=== PATIENT | male | born 1940 | race Caucasian/White ===

== ENCOUNTER → 2024-05-12 | Outpatient (CLI) | payer MEDICARE, OTHER, SELFPAY ==
--- NOTE | 2024-05-12 08:47 | VDUE_ITS ---
Reason For Study Reason For Study: Pre op Right Arm Left Arm Unable to visualize cephalic vein throughout due to Cephalic Vein at mid forearm measures 0.08 x 0.09 cm. vessel size. Cephalic Vein proximal forearm measures 0.12 x 0.11 Proximal Basilic vein measures 0.23 x 0.23 cm. cm. Mid Basilic vein measures 0.24 x 0.26 cm. Cephalic Vein distal upper arm measures 0.06 x 0.08 Distal Basilic vein measures 0.20 x 0.21 cm. cm. Right brachial artery measures 0.36 x 0.36 cm with a Unable to visualize cephalic vein at wrist and mid velocity of 90.5 cm/sec. bicep to shoulder due to vessel size. RIght radial artery measures 0.15 x 0.13 cm with a Proximal Basilic vein measures 0.18 x 0.18 cm. velocity of 76.5 cm/sec. Mid Basilic vein measures 0.18 x 0.20 cm. Distal Basilic vein measures 0.25 x 0.26 cm. Left brachial artery measures 0.42 x 0.42 cm with a velocity of 113 cm/sec. Left radial artery measures 0.09 x0.09 cm with a velocity of 16.5 cm/sec. Procedure This was a bilateral upper extremity venous doppler examination. Exam performed in department. VL/Dialysis Vein Map PRE-OP BILAT Interpretation Summary Bilateral upper extremity arteries patent with normal waveforms and measurement s above. Unable to visualize right cephalic vein throughout, left cephalic vein in upper arm. Remaining veins patent with measurements above. Ordering Physician: Jeanne Aguayo Referring Physician: Diomedes Byers Performed By: Shereen Vega RVT ???
== END | disposition home or self-care (01) ==
PROVIDERS: PCP Family Medicine; Referring Provider Physician Assistant; Visit Provider Physician Assistant
DX: Z01.818 Encounter for other preprocedural examination (principal); N18.6 End stage renal disease; Z99.2 Dependence on renal dialysis
CPT/HCPCS: 93985

== ENCOUNTER → 2024-08-13 | Outpatient (CLI) | payer MEDICARE, OTHER, SELFPAY ==
[2024-08-13 09:05] LABS: Hematocrit 33.8 % (40-54); Hemoglobin 11.1 g/dL (13.0-16.5); Mean Corp Hgb Conc 32.8 g/dL (32-36); Mean Corpuscular Hgb 30.9 pg (27.0-32.0); Mean Corpuscular Volume 94.2 fL (80-94); Mean Platelet Vol. 10.4 fl (6.2-12.0); Platelet Count 167 K/mm3 (150-450); RBC Distribution Width CV 14.5 % (11.6-14.6); RBC Distribution Width SD 49.9 fl (35.1-43.9); Red Blood Count 3.59 M/mm3 (4.6-6.2)
[2024-08-13 10:00] LABS: Anion Gap 15 (5-15); BUN 33 mg/dL (4-19); BUN/Creat Ratio 8.2 RATIO (10-20); Calcium,Total 9.3 mg/dL (7.6-11.0); Carbon Dioxide 26.9 mmol/L (21.0-32.0); Chloride 98 mmol/L (98-108); Creatinine, Serum 3.98 mg/dL (0.70-1.20); EST Glomerular Filtration Rate 14 (>60); Glucose 107 mg/dL (70-99); Sodium Level 139 mmol/L (133-145)
== END | disposition home or self-care (01) ==
LOC: LAB 08:42
PROVIDERS: PCP Family Medicine; Referring Provider Surgery Trauma Surgery; Visit Provider Surgery Trauma Surgery
DX: Z01.818 Encounter for other preprocedural examination (principal)
CPT/HCPCS: 36415; 80048; 85027

== ENCOUNTER 2024-08-25 09:57 | Day surgery (SDC) | payer MEDICARE, OTHER, SELFPAY ==
--- NOTE | 2024-08-11 14:25 | PAT.ANE_ITS ---
Pre-Assessment Diagnosis/Proposed Procedure Planned Operative Procedure(s): (R) Right Arm Arteriovenous Fistula Creation Possible Graft Anesthesia History Anesthesia History - bar tacker: Anesthesia History - bar tacker Hx Hospitalization No 08/11/24 11:40 Any Problems With Anesthesia No 08/11/24 11:40 Cholinesterase deficiency No 08/11/24 11:40 You/Your Family Experience No 08/11/24 11:40 fever (hyperthermia) with Relationship Recent Exposure to Contagious Disease Does patient have nerve No 08/11/24 11:40 stimulator Patient instructed to have device shut off --Does patient have Pacemaker or ICD? When Was Last Pacemaker Check QUESTION #4 FULL TEXT: You/Your Family Experience fever (hyperthermia) with Anesthesia Last Oral Intake Last Oral intake: Last Oral Intake NPO since Meds taken in AM with sips of water? Meds patient instructed to take am of surgery PONV PONV - bar tacker: PONV - bar tacker Female No 08/11/24 11:40 HX of Motion Sickness No 08/11/24 11:40 HX of N/V After Surgery No 08/11/24 11:40 Non-Smoker Yes 08/11/24 11:40 Duration of Surgery greater Yes 08/11/24 11:40 than 60 minutes Number of Risk Factors 2 08/11/24 11:40 PONV Score Moderate Risk 08/11/24 11:40 Respiratory Assessment Respiratory Assessment - bar tacker: Respiratory Tract Infection Hx - bar tacker Hx Respiratory Tract Infection No 08/11/24 11:40 STOP Sleep Apnea STOP Sleep Apnea - bar tacker: STOP Sleep Apnea - bar tacker Hx Hypertension Yes: PER PT, CONTROLLED ON 08/11/24 11:40 MEDS Hx Sleep Apnea No 08/11/24 11:40 CPAP BIPAP Do you snore loudly (louder No 08/11/24 11:40 than talking or can be heard Do you often feel tired/ No 08/11/24 11:40 fatigued/ sleepy during daytime? Has anyone observed you stop No 08/11/24 11:40 breathing during sleep? STOP Results Negative 08/11/24 11:40 QUESTION #5 FULL TEXT : Do you snore loudly (louder than talking or can be heard through closed doors)? 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 Specify any problems Hx of Preganancy in last 3 N/A 08/11/24 11:40 Months Nurse Filling Out Transfusion MGRIFFITH 08/11/24 11:40 & Questions: Date: 08/11/24 08/11/24 11:40 Time: 11:43 08/11/24 11:40 Patient unable to answer at this time (ie. confused, unrespo /Reproduction History /Reproductive History - bar tacker: /Reproductive Hx- bar tacker Hx Now Gestational Age (in weeks): EDC: Hx Hx Para Hx Section SAB PFSH Medical History (Updated 08/11/24 @ 11:56 by Marimar Cleary) Wears partial dentures Wears dentures Cancer Ambulates with cane Gout Anemia Easy bruising High cholesterol History of IBS Hypertension Former smoker History of echocardiogram History of stress test History of heart attack Cardiology follow-up encounter ESRD (end stage renal disease) Home Medications Medication Instructions Recorded Last Taken Type allopurinol 100 mg tablet 100 mg PO QDAY 04/14/24 Unkn own History amlodipine 10 mg tablet 10 mg PO QDAY 04/14/24 Unkno wn History atorvastatin 40 mg tablet 40 mg PO QDAY 04/14/24 Unkno wn History doxazosin 2 mg tablet 2 mg PO BID 04/14/24 Unknown History hydralazine 50 mg tablet 50 mg PO TID 04/14/24 Unknow n History losartan 25 mg tablet 25 mg PO QHS 04/14/24 Unknow n History metoprolol succinate 25 mg 25 mg PO QDAY 04/14/24 Unkn own History tablet,extended release 24 hr sodium bicarbonate 650 mg tablet 650 mg PO BID 5 Unknown History tamsulosin 0.4 mg capsule 0.4 mg PO QDAY 04/14/24 Unkn own History aspirin 81 mg capsule 81 mg PO DAILY 08/11/24 Unkn own History Allergy/AdvReac Type Severity Reaction Status Date / Time No Known Allergies Allergy Verified 08/11/24 11:35 Family History Other Cancer Hypertension Kidney disease Surgical History (Updated 08/11/24 @ 11:56 by Marimar Cleary) History of coronary artery stent placement History of appendectomy History of cholecystectomy History of colonoscopy History of left nephrectomy (1992) Hx of left knee surgery (~06/2023) Hx of hernia repair Social History Smoking Status: Former smoker Tobacco: How many years used: 20 Audit: Pertinent Findings Pertinent Findings EKG Perinent findings: 07/10/2024. Sinus rhythm with first-degree AV block. Possible anterior for infarct age undetermined. Stress test pertinent findings: 05/27/2023. Fixed, severely decreased, moderate size perfusion defect in basal to mid inferior wall. EF estimated 40% with global hypokinesis. Consistent with prior infarct. No evidence of inducible ischemia. Echo (EF%) pertinent findings: Echo. 06/03/2023. EF 35%. Global hypokinesis of left ventricle. Consult pertinent findings: Cardiology. [facility]. Currently asymptomatic from cardiac standpoint. Mildly reduced LV function. Nonischemic. Conservative treatment at this point. 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 Proximal mid LAD 60% lesion proximal RCA 50% lesion circumflex 40% lesion. Status post stents. Recommendation Anesthesia Recommendation Anesthesia recommendation: OPTIMIZED for anesthesia
[2024-08-25] VITALS (8 sets, daily range): BP systolic 117–171; BP diastolic 60–84; PULSE 62–70; RESP 16–18; TEMP 36.2–36.9; O2SAT 95–100; BMI 22.7
[2024-08-25] MEDS: 0.9% Normal Saline (500mL Bag) 500 ML 15 ML IV (10:35)
--- NOTE | 2024-08-25 11:08 | PCM.HP.STD ---
HPI - General HPI Narrative MAN FONSECA, is a 84 M who presents with ESRD currently on dialysis via right IJ catheter. Vein mapping revealed a small brachial artery, marginal right basilic vein. [facility] Medical History (Updated 08/11/24 @ 11:56 by Marimar Cleary) Wears partial dentures Wears dentures Cancer Ambulates with cane Gout Anemia Easy bruising High cholesterol History of IBS Hypertension Former smoker History of echocardiogram History of stress test History of heart attack Cardiology follow-up encounter ESRD (end stage renal disease) Home Medications Medication Instructions Recorded Last Taken Type allopurinol 100 mg tablet 100 mg PO QDAY 04/14/24 08/24/24 History amlodipine 10 mg tablet 10 mg PO QDAY 04/14/24 08/25/24 History atorvastatin 40 mg tablet 40 mg PO QDAY 04/14/24 08/25/24 History doxazosin 2 mg tablet 2 mg PO BID 04/14/24 08/25/24 History hydralazine 50 mg tablet 50 mg PO TID 04/14/24 08/25/24 History losartan 25 mg tablet 25 mg PO QHS 04/14/24 08/24/24 History metoprolol succinate 25 mg 25 mg PO QDAY 04/14/24 08/25/24 History tablet,extended release 24 hr sodium bicarbonate 650 mg tablet 650 mg PO BID 04/14/24 Unknown History tamsulosin 0.4 mg capsule 0.4 mg PO QDAY 04/14/24 08/24/24 History aspirin 81 mg capsule 81 mg PO DAILY 08/11/24 08/25/24 History Allergy/AdvReac Type Severity Reaction Status Date / Time No Known Allergies Allergy Verified 08/25/24 10:34 Family History Other Cancer Hypertension Kidney disease Surgical History (Updated 08/11/24 @ 11:56 by Marimar Cleary) History of coronary artery stent placement History of appendectomy History of cholecystectomy History of colonoscopy History of left nephrectomy (1992) Hx of left knee surgery (~06/2023) Hx of hernia repair Social History Smoking Status: Former smoker Tobacco: How many years used: 20 ROS Constitutional Constitutional: Denies chills, fever(s), frequent falls, lethargy or weakness Eyes Eyes: Denies blind spots, change in vision or loss of vision ENT HEENT: Denies bleeding gums, hoarseness or sore throat Cardiovascular Cardiovascular: Denies abdominal pain, bluish discoloration of hand/feet, chest pain with activity, claudication, cold extremities, cyanosis, dyspnea on exertion, erythema on extremities, irregular heart rhythm, leg edema, leg ulcers, numbness in extremities or weakness in extremities Respiratory/Chest Respiratory/Chest: Denies cough, excessive phlegm production, shortness of breath at rest, shortness of breath with exertion or wheezing Gastrointestinal Gastrointestinal: Denies anorexia, change in stool character, constipation, diarrhea, melena or rectal bleeding Genitourinary Genitourinary: Denies dysuria or hematuria Musculoskeletal Musculoskeletal: Denies abnormal gait Integumentary Integumentary: Reports other Details: ; Denies erythema, non-healing lesions or wounds Neurologic Neurologic: Denies abnormal speech, focal weakness, headache(s), loss of vision, numbness, paresthesias or sensory deficit Hematologic/Lymphatic Hematologic/Lymphatic: Denies easy bleeding, easy bruising or lymphadenopathy Vital Signs Vital Signs Vital Signs: 08/25/24 10:37 08/25/24 10:37 Temperature 98.4 F Temperature Source Temporal Pulse Rate 65 Respiratory Rate 16 Respiratory Pattern Normal Blood Pressure 171/84 H Blood Pressure Mean 113 Blood Pressure Source Monitor Blood Pressure Position Sitting Blood Pressure Location Left Arm Pulse Ox 100 Oxygen Delivery Method Room Air Weight Weight: 167 lb 12.348 oz Body Mass Index (BMI) 22.7 Physical Exam Const alert, oriented x3, no apparent distress and healthy appearing General Appearance: cooperative; Negative for combative or lethargic Orientation / Consciousness: awake Exam Limitations: no limitations HEENT Head and Scalp: normocephalic and atraumatic Eyes EOMs intact bilaterally General Eye: normal appearance of both eyes Neck full ROM General: trachea midline Resp normal respiratory effort and no use of accessory muscles Effort and Inspection: Negative for labored, stridor or audible wheezes Cardio regular rate and regular rhythm Back/Spine Cervical Spine: cervical ROM normal Extremity full ROM, normal capillary refill and no clubbing, cyanosis or edema Skin no rashes or lesions noted and no wounds Neuro oriented x3, CN's II-XII intact bilaterally, no focal motor deficits and no sensory deficits noted Psych thought process normal, cooperative, affect normal, speech normal and activity/motor behavior normal Assessment & Plan Assessment/Plan (1) ESRD (end stage renal disease) on dialysis: PLAN: -right basilic fistula, possible cadaver graft
--- NOTE | 2024-08-25 11:09 | PRE.ANES_ITS ---
ASA Classification* ASA Classification ASA Classification: 3 Assessment & Plan Anesthesia* Anesthesia Assessment Anesthesia Assessment: Discussed sedation and/or anesthesia options, risks, benefits, and alternatives with patient/parents/legal guardian/POA. Questions invited. The patient/parents/legal guardian/POA seems to understand and agrees to proceed with anesthesia plan. Reviewed the physical assessment, medical history, allergy history and patient home medications list prior to surgery/procedure/anesthetic and documented any changes. Performed airway and anesthesia risk assessments. Anesthesia Type Anesthesia Type: MAC History Source History Obtained from:: Patient and Chart Anesthesia Focused Assessment* Temperature: 98.4 F Pulse Rate: 65 Blood Pressure: 171/84 Respiratory Rate: 16 Pulse Ox: 100 Oxygen Delivery Method: Room Air Airway Assessment Mouth opens: >3 cm Mallampati Score: I Teeth Condition: Dentures (Full upper dentures are out.) and Partial (Partial lower dentures are out. Rest are tight.) Neck Range of motion (ROM): Limited ROM (Slight decrease in extension) Focused Labs Anesthesia Preop lab: CBC WBC 8.0 K/mm3 (4.4-11.0) 08/13/24 08:52 08/13/24 RBC 3.59 M/mm3 (4.6-6.2) L 08/13/24 08:52 08/13/24 Hgb 11.1 g/dL (13.0-16.5) L 08/13/24 08:52 5 Hct 33.8 % (40-54) L 08/13/24 08:52 08/13/24 Plt Count 167 K/mm3 (150-450) 08/13/24 08:52 08/13/24 CHEMISTRY Potassium 4.0 mmol/L (3.3-5.1) 08/13/24 08:52 08/13/24 Sodium 139 mmol/L (133-145) 08/13/24 08:52 08/13/24 BUN 33 mg/dL (4-19) H 08/13/24 08:52 08/13/24 Creatinine 3.98 mg/dL (0.70-1.20) H 08/13/24 08:52 Glucose 107 mg/dL (70-99) H 08/13/24 08:52 08/13/24 COAG Pre-Assessment Diagnosis/Proposed Procedure Planned Operative Procedure(s): (R) Right Arm Arteriovenous Fistula Creation Possible Graft Anesthesia History Anesthesia History - orthopedic physical therapist: Anesthesia History - orthopedic physical therapist Hx Hospitalization No 08/11/24 11:40 Any Problems With Anesthesia No 08/11/24 11:40 Cholinesterase deficiency No 08/11/24 11:40 You/Your Family Experience No 08/11/24 11:40 fever (hyperthermia) with Relationship Recent Exposure to Contagious No 08/25/24 10:37 Disease Does patient have nerve No 08/11/24 11:40 stimulator Patient instructed to have device shut off --Does patient have Pacemaker No 08/25/24 10:37 or ICD? When Was Last Pacemaker Check QUESTION #4 FULL TEXT: You/Your Family Experience fever (hyperthermia) with Anesthesia Last Oral Intake Last Oral intake: Last Oral Intake NPO since 04:00 08/25/24 10:37 Meds taken in AM with sips of Yes 08/25/24 10:37 water? Meds patient instructed to take am of surgery Any additional information?: Yes Meds taken in AM with sips of water?: Yes PONV PONV - orthopedic physical therapist: PONV - orthopedic physical therapist Female No 08/11/24 11:40 HX of Motion Sickness No 08/11/24 11:40 HX of N/V After Surgery No 08/11/24 11:40 Non-Smoker Yes 08/11/24 11:40 Duration of Surgery greater Yes 08/11/24 11:40 than 60 minutes Number of Risk Factors 2 08/11/24 11:40 PONV Score Moderate Risk 08/11/24 11:40 Height & Weight Height & Weight: Anesthesia: Height & Weight Height 6 ft 08/25/24 10:37 Weight: 76.1 kg 08/25/24 10:37 Body Mass Index (BMI) 22.7 08/25/24 10:37 Respiratory Assessment Respiratory Assessment - orthopedic physical therapist: Respiratory Tract Infection Hx - orthopedic physical therapist Hx Respiratory Tract Infection No 08/11/24 11:40 STOP Sleep Apnea STOP Sleep Apnea - orthopedic physical therapist: STOP Sleep Apnea - orthopedic physical therapist Hx Hypertension Yes: PER PT, CONTROLLED ON 08/11/24 11:40 MEDS Hx Sleep Apnea No 08/11/24 11:40 CPAP BIPAP Do you snore loudly (louder No 08/11/24 11:40 than talking or can be heard Do you often feel tired/ No 08/11/24 11:40 fatigued/ sleepy during daytime? Has anyone observed you stop No 08/11/24 11:40 breathing during sleep? STOP Results Negative 08/11/24 11:40 QUESTION #5 FULL TEXT : Do you snore loudly (louder than talking or can be heard through closed doors)? 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 Specify any problems Hx of Preganancy in last 3 N/A 08/11/24 11:40 Months Nurse Filling Out Transfusion MGRIFFITH 08/11/24 11:40 & Questions: Date: 08/11/24 08/11/24 11:40 Time: 11:43 08/11/24 11:40 Patient unable to answer at this time (ie. confused, unrespo /Reproduction History /Reproductive History - orthopedic physical therapist: /Reproductive Hx- orthopedic physical therapist Hx Now Gestational Age (in weeks): EDC: Hx Hx Para Hx Section SAB Active Medications Active Medications: Current Medications Generic Name Dose Route Start Last Admin Trade Name Freq PRN Reason Stop Dose Admin Cefazolin Sodium 2 gm/ Sodium 110 mls @ 150 mls/hr 08/25/24 11:50 Chloride IV 08/25/24 12:33 INTRAOP ONE Sodium Chloride 500 mls @ 0 mls/hr 08/25/24 10:15 08/25/24 10:35 IV 15 mls/hr .Q0M GAMA Administration KVO PFSH Medical History Wears partial dentures Wears dentures Cancer Ambulates with cane Gout Anemia Easy bruising High cholesterol History of IBS Hypertension Former smoker History of echocardiogram History of stress test History of heart attack Cardiology follow-up encounter ESRD (end stage renal disease) Home Medications Medication Instructions Recorded Last Taken Type allopurinol 100 mg tablet 100 mg PO QDAY 04/14/2407/15 History amlodipine 10 mg tablet 10 mg PO QDAY 04/14/2408/25 History atorvastatin 40 mg tablet 40 mg PO QDAY 04/14/2408/25 History doxazosin 2 mg tablet 2 mg PO BID 04/14/24 5 History hydralazine 50 mg tablet 50 mg PO TID 04/14/24 History losartan 25 mg tablet 25 mg PO QHS 04/14/24 History metoprolol succinate 25 mg 25 mg PO QDAY 04/14/2408/14 History tablet,extended release 24 hr sodium bicarbonate 650 mg tablet 650 mg PO BID 5 Unknown History tamsulosin 0.4 mg capsule 0.4 mg PO QDAY 04/14/2407/15 History aspirin 81 mg capsule 81 mg PO DAILY 08/11/2408/14 History Allergy/AdvReac Type Severity Reaction Status Date / Time No Known Allergies Allergy Verified 08/25/24 10:34 Family History Other Cancer Hypertension Kidney disease Surgical History History of coronary artery stent placement History of appendectomy History of cholecystectomy History of colonoscopy History of left nephrectomy (1992) Hx of left knee surgery (~06/2023) Hx of hernia repair Social History Smoking Status: Former smoker Tobacco: How many years used: 20 Review of Systems (Anesthesia) ROS Narrative System reviewed and no additional complaints, except as documented.
[2024-08-25] MEDS: Cefazolin 2 GM in 0.9% Normal Saline (100mL Bag) 100 ML IV (11:28)
[2024-08-25] MEDS: Lidocaine 1% (20 ml mdv) 20 ML Vial (12:04)
[2024-08-25] MEDS: Bupivacaine 0.25% 30 ML Vial (12:04)
--- NOTE | 2024-08-25 12:50 | DCINST_ITS ---
Discharge Instructions Diet Discharge Diet: No restrictions Activity Lifting Restrictions: do not lift > 20 lbs for 3 weeks with right arm Additional Activity Instructions:: do not submerge incision for 3 weeks Dressing / Incision Call your doctor if your incision/area has: Sudden Increased Bleeding, Increased Pain/ Swelling, Increased Redness and Foul Smelling Discharge Call your doctor if you observe: Coldness, Increased Pain and Numbness or Tingling Remove Dressing in: 2 days Cleanse incision/area with: Soap & Water Follow Up Care Test Results: Test results from this visit will be discussed in further detail at your follow- up appointment, if applicable. Discharge Plan Admission Attending Provider: Raghavendra Lizama Primary Care Provider: Steve Byers Instructions Print Language: [place] Discharge Orders/Prescriptions Prescriptions: New oxycodone 5 mg tablet 5 mg PO Q8H PRN (Reason: pain) 1 Days Qty: 3 0RF Continued allopurinol 100 mg tablet 100 mg PO QDAY amlodipine 10 mg tablet 10 mg PO QDAY atorvastatin 40 mg tablet 40 mg PO QDAY doxazosin 2 mg tablet 2 mg PO BID hydralazine 50 mg tablet 50 mg PO TID metoprolol succinate 25 mg tablet extended release 24 hr 25 mg PO QDAY sodium bicarbonate 650 mg tablet 650 mg PO BID tamsulosin 0.4 mg capsule 0.4 mg PO QDAY losartan 25 mg tablet 25 mg PO QHS aspirin 81 mg capsule 81 mg PO DAILY Referrals / Follow Up: Steve Byers MD [Primary Care Provider] - Disposition Disposition (needs filled in before D/C Order can be placed): Home, Self Care
--- NOTE | 2024-08-25 13:14 | PCM.POST.ANE ---
Anesthesia: Postop Eval I Current Vital Signs Temperature: 97.5 F Pulse Rate: 63 Blood Pressure: 117/61 Respiratory Rate: 16 Pulse Ox: 96 Assessment Airway patent: Yes Spontaneous unlabored respirations: Yes nausea: No Vomiting: No Anesthesia Complication: No Fluid Hydration Crystalloid volume administer (ml): 500 Total IV fluid infused: 500 Progress Note Anesthesia document: Postop Eval 1 completed: Yes
[2024-08-25] MEDS: Heparin 10,000 UNITS/10 ML Vial 1000 UNITS IV (14:45)
--- NOTE | 2024-08-25 15:38 | SUR.PHASEII ---
1520 dialysis catheter clamped. flushed 10ml ns , then 1.8 ml of heparin. Minimal blood noted to fistula , 4x4 and paper tape applied. Patient and his instructed to limit use with right arm. Patient instructed to elevate and apply ice if needed under upper rt arm.
--- NOTE | 2024-08-25 16:52 | PCM.OPRPT ---
Operative Report (Standard) Operative Information Date of Procedure: 08/25/24 Pre-Operative Diagnosis: End-stage renal disease on dialysis Post-Operative Diagnosis: Same Surgery/Procedure Performed: Right stage I basilic fistula creation field sales representative: Yes Clinical Information Systems Director: Mariana Herr Tasks completed by assistant chief nursing officer: Opening, Closing, Opening & closing, Hemostasis: Tie, Hemostasis: Electrocautery and Retracting Type of Anesthesia: Local MAC, Local and MAC RN Documented Start/Stop Times: Operation Date: 08/25/24 11:50 Case Time Into Pre-Op 08/25/24 10:05 Out of Pre-Op 08/25/24 11:23 Anesthesia Start 08/25/24 11:28 Into Room 08/25/24 11:28 Procedure Start 08/25/24 11:58 Procedure End 08/25/24 13:02 Anesthesia End 08/25/24 13:09 Out of Room 08/25/24 13:09 Into Recovery 08/25/24 13:11 Into Phase II Recovery 08/25/24 13:25 Out of Recovery 08/25/24 13:25 Out of Phase II 08/25/24 15:30 Procedure Start Time: 12:00 Procedure Stop Time: 13:00 Select all DRAINS/GRAFTS/IMPLANTS that apply: None Estimated Blood Loss: 4 Specimen collected: No Description of surgery: HPI: Patient is an 84-year-old male with end-stage renal disease currently on dialysis who had vein mapping which revealed marginal right basilic vein and small brachial artery. He presents now for possible fistula creation versus cadaver graft placement. Description of procedure: Upon obtaining informed consent and verification correct patient procedure site the patient was taken to the operating where he was positioned prepped and draped in usual sterile fashion. Timeout was performed moderate sedation administered by anesthesia. Ultrasound was used to evaluate the basilic vein and is found to be satisfactory in caliber throughout the upper arm however distal to the acute decrease it was significantly smaller in caliber. The vessel in the distal upper arm was close to the proximity to reach the brachial vein so it was felt that this was a viable option. Skin overlying the vessel at this location was anesthetized 1% lidocaine and oblique incision made over the basilic vein and brachial artery. Bovie was used to dissect down through subcutaneous tissue and self-retaining retractors put in position. Once the basilic vein was identified sharp dissection was dissected free proximal and distal to site branch was ligated with silk ties and divided. Once a satisfactory length of vessel was mobilized we turned our attention to the arterial exposure. Bovie was used to dissect immediately and as we approached the palpable pulse was noted that there was a high bifurcation of the brachial artery with 2 artery arteries present in the distal upper arm. The radial artery was of satisfactory caliber to support fistula creation so this was dissected free in the right inguinal past the vessel proximal and distal. The patient was then heparinized allowed to circulate for 3 minutes. Basilic vein was then ligated distally in the field and divided serially dilated up to 3 mm and flushed with heparinized saline. The radial artery was then occluded with Vesseloops and longitudinal arteriotomy created with 11 blade extended with Moya scissors. The vein was then beveled to match the arteriotomy and anastomosis performed using a 6-0 Prolene in a running fashion. Prior to completing the suture line the vessels were backbled and after pulling the suture line clamps removed satisfactory hemostasis was noted. There is a palpable radial and ulnar pulse at the wrist and low resistant Doppler signal in the fistula. With some time in observation they stability to a subtle thrill. The incision was then inspected for hemostasis and closed with 3-0 Vicryl followed by 4-0 Monocryl and Dermabond for the skin. The patient was then taken to the recovery room anticipate discharge to home. Surgical Findings: See above Complications Complications: No
--- NOTE | 2024-08-25 19:08 | POSTOPAN2_ITS ---
Anesthesia Postop Eval I Sum Postop Eval Completion status Anesthesia document: Postop Eval 1 completed: Yes Anesthesia Postop Eval I Summary Anesthesia Postop Eval I Summary: Anesthesia Postop Eval I: Assessment Summary Airway patent Yes 08/25/24 13:14 [email or web address] Spontaneous unlabored Yes 08/25/24 13:14 [email or web address] respirations Mental status nausea No 08/25/24 13:14 [email or web address] Vomiting No 08/25/24 13:14 [email or web address] Anesthesia Postop Eval I: Fluid Summary Crystalloid volume administer 500 08/25/24 13:14 [email or web address] (ml) Colloids volume administered ( ml) Blood Product volume administered (ml) Total IV fluid infused 500 08/25/24 13:14 [email or web address] Anesthesia Postop Eval I: Summary Notes Anesthesia Complication No 08/25/24 13:14 [email or web address] Anesthesia Complication Comment: Post-operative progress note Anesthesia: Postop Eval II Evaluation Mental status: Awake and Calm Pain Level: 1 nausea: No Vomiting: No Complications Anesthesia Complication: No
--- NOTE | 2024-08-25 19:08 | PCM.POSTANE2 ---
Anesthesia Postop Eval I Sum Postop Eval Completion status Anesthesia document: Postop Eval 1 completed: Yes Anesthesia Postop Eval I Summary Anesthesia Postop Eval I Summary: Anesthesia Postop Eval I: Assessment Summary Airway patent Yes 08/25/24 13:14 [email or web address] Spontaneous unlabored Yes 08/25/24 13:14 [email or web address] respirations Mental status nausea No 08/25/24 13:14 [email or web address] Vomiting No 08/25/24 13:14 [email or web address] Anesthesia Postop Eval I: Fluid Summary Crystalloid volume administer 500 08/25/24 13:14 [email or web address] (ml) Colloids volume administered ( ml) Blood Product volume administered (ml) Total IV fluid infused 500 08/25/24 13:14 [email or web address] Anesthesia Postop Eval I: Summary Notes Anesthesia Complication No 08/25/24 13:14 [email or web address] Anesthesia Complication Comment: Post-operative progress note Anesthesia: Postop Eval II Evaluation Mental status: Awake and Calm Pain Level: 1 nausea: No Vomiting: No Complications Anesthesia Complication: No
== END 2024-08-25 15:45 | disposition home or self-care (01) ==
LOC: SDC 10:00 → AC 10:00
PROVIDERS: PCP Family Medicine; Referring Provider Surgery Trauma Surgery; Visit Provider Surgery Trauma Surgery
PROC: (CPT 36821; principal; 2024-08-25 11:35)
DX: I12.0 Hypertensive chronic kidney disease with stage 5 chronic kidney disease or end stage renal disease (principal); N18.6 End stage renal disease; Z99.2 Dependence on renal dialysis; E78.00 Pure hypercholesterolemia, unspecified; I25.2 Old myocardial infarction; Z79.82 Long term (current) use of aspirin; Z79.899 Other long term (current) drug therapy; Z87.891 Personal history of nicotine dependence; Z95.5 Presence of coronary angioplasty implant and graft
CPT/HCPCS: 36821; 01844; A4648; A4216

== ENCOUNTER → 2024-11-04 | Outpatient (CLI) | payer MEDICARE, OTHER, SELFPAY ==
--- NOTE | 2024-11-04 12:46 | AVDS_ITS ---
Reason For Study Reason For Study: Radiobasilic AVF RIGHT Radiobasilic AVF Inflow,154.5/82.0 cm/sec. Inflow, 585.6 ml/min. Prox anast, 710.5/420.7 cm/sec. Prox anast, 377.4 ml/min. Prox graft, 324.6/158.0 cm/sec. Prox graft, 923.6 ml/min. Mid graft, 141.9/56.3 cm/sec. Mid graft, 861.9 ml/min. Dist anast, 130.7/60.6 cm/sec. Dist anast, 562.0 ml/min. Outflow, 167.5/79.4 cm/sec. Outflow, 916.1 ml/min. VL/AV Fistula/Dialysis Graft Scan Interpretation Summary Right arm fistula patent with normal velocities and no stenosis. Adequate flow volumes, borderline adequate size. Ordering Physician: Jeanne Aguayo Referring Physician: Diomedes Byers MD Performed By: Stacey Beasley RVT
== END | disposition home or self-care (01) ==
LOC: CVS 12:42
PROVIDERS: PCP Family Medicine; Referring Provider Physician Assistant; Visit Provider Physician Assistant
DX: N18.6 End stage renal disease (principal); Z99.2 Dependence on renal dialysis
CPT/HCPCS: 93990

== ENCOUNTER 2024-11-22 10:10 | Day surgery (SDC) | payer MEDICARE, OTHER, SELFPAY ==
--- NOTE | 2024-11-07 23:58 | PAT.ANESEVAL ---
Pre-Assessment Diagnosis/Proposed Procedure Planned Operative Procedure(s): (R) Right Upper Extremity Arteriovenous Fistula,Transposition Anesthesia History Anesthesia History - accountancy professor: Anesthesia History - accountancy professor Hx Hospitalization No 11/07/24 11:17 Any Problems With Anesthesia No 11/07/24 11:17 Cholinesterase deficiency No 11/07/24 11:17 You/Your Family Experience No 11/07/24 11:17 fever (hyperthermia) with Relationship Recent Exposure to Contagious No 08/25/24 10:37 Disease Does patient have nerve No 11/07/24 11:17 stimulator Patient instructed to have device shut off --Does patient have Pacemaker or ICD? When Was Last Pacemaker Check QUESTION #4 FULL TEXT: You/Your Family Experience fever (hyperthermia) with Anesthesia Last Oral Intake Last Oral intake: Last Oral Intake NPO since Meds taken in AM with sips of water? Meds patient instructed to take am of surgery PONV PONV - accountancy professor: PONV - accountancy professor Female No 11/07/24 11:17 HX of Motion Sickness No 11/07/24 11:17 HX of N/V After Surgery No 11/07/24 11:17 Non-Smoker Yes 11/07/24 11:17 Duration of Surgery greater Yes 11/07/24 11:17 than 60 minutes Number of Risk Factors 2 11/07/24 11:17 PONV Score Moderate Risk 11/07/24 11:17 Height & Weight Height & Weight: Anesthesia: Height & Weight Height 6 ft 08/25/24 10:37 Respiratory Assessment Respiratory Assessment - accountancy professor: Respiratory Tract Infection Hx - accountancy professor Hx Respiratory Tract Infection No 11/07/24 11:17 STOP Sleep Apnea STOP Sleep Apnea - accountancy professor: STOP Sleep Apnea - accountancy professor Hx Hypertension Yes: PER PT, CONTROLLED ON 11/07/24 11:17 MEDS Hx Sleep Apnea No 11/07/24 11:17 CPAP BIPAP Do you snore loudly (louder No 11/07/24 11:17 than talking or can be heard Do you often feel tired/ No 11/07/24 11:17 fatigued/ sleepy during daytime? Has anyone observed you stop No 11/07/24 11:17 breathing during sleep? STOP Results Negative 11/07/24 11:17 QUESTION #5 FULL TEXT : Do you snore loudly (louder than talking or can be heard through closed doors)? Tobacco Use History Tobacco Use History - accountancy professor: Tobacco Use History - accountancy professor Tobacco Use Smoking Status Former smoker 11/07/24 11:17 Hx Tobacco Use No 11/07/24 11:17 Years Smoking Packs Smoked per Day Smoking Cessation Date was No - quit smoking greater 11/07/24 11:17 within the last 15 years than 15 years ago Hx Smoking Cessation Date Hx Smoking Cessation Counseling Hematologic Medial History Hematologic Hx - accountancy professor: Hematologic Medical Hx - educational program director Hx of Blood Transfusion Yes 11/07/24 11:17 Hx of Transfusion in last 3 No 11/07/24 11:17 Months Date of Last Transfusion (if within last 3 months) Ever experience any problems No 11/07/24 11:17 with transfusion(s)? Specify any problems Hx of Preganancy in last 3 N/A 11/07/24 11:17 Months Nurse Filling Out Transfusion [email or web address] 11/07/24 11:17 & Questions: Date: 11/07/24 11/07/24 11:17 Time: 11:19 11/07/24 11:17 Patient unable to answer at this time (ie. confused, unrespo /Reproduction History /Reproductive History - accountancy professor: /Reproductive Hx- accountancy professor Hx Now No 11/07/24 11:17 Gestational Age (in weeks): EDC: Hx Hx Para Hx Section SAB No 11/07/24 11:17 [facility] Medical History (Updated 11/07/24 @ 11:27 by Marimar Cleary) Wears glasses Wears partial dentures Wears dentures Cancer Ambulates with cane Gout Anemia Easy bruising High cholesterol History of IBS Hypertension Former smoker History of echocardiogram History of stress test History of heart attack Cardiology follow-up encounter ESRD (end stage renal disease) Home Medications ?Medication ?Instructions ?Recorded ?Last Taken ?Type allopurinol 100 mg tablet 100 mg PO QDAY 04/14/24 08/24/24 History amlodipine 10 mg tablet 10 mg PO QDAY 04/14/24 08/25/24 History atorvastatin 40 mg tablet 40 mg PO QDAY 04/14/24 08/25/24 History doxazosin 2 mg tablet 2 mg PO BID 04/14/24 08/25/24 History hydralazine 50 mg tablet 50 mg PO TID 04/14/24 08/25/24 History losartan 25 mg tablet 25 mg PO QHS 04/14/24 08/24/24 History metoprolol succinate 25 mg 25 mg PO QDAY 04/14/24 08/25/24 History tablet,extended release 24 hr sodium bicarbonate 650 mg tablet 650 mg PO BID 04/14/24 Unknown History tamsulosin 0.4 mg capsule 0.4 mg PO QHS 04/14/24 08/24/24 History aspirin 81 mg capsule 81 mg PO DAILY 08/11/24 08/25/24 History Allergy/AdvReac Type Severity Reaction Status Date / Time No Known Allergies Allergy Verified 11/07/24 11:13 Family History Other Cancer Hypertension Kidney disease Surgical History History of coronary artery stent placement History of appendectomy History of cholecystectomy History of colonoscopy History of left nephrectomy (1992) Hx of left knee surgery (~06/2023) Hx of hernia repair Social History Smoking Status: Former smoker Tobacco: How many years used: 20 Audit: Pertinent Findings Pertinent Findings EKG Perinent findings: June 30, 2024. Sinus rhythm with first-degree AV block. Possible anterior infarct, age undetermined Stress test pertinent findings: 05/27/2023. EF of 40%. Small area of mildly decreased perfusion in the mid lateral wall consistent with prior infarct. No evidence of inducible ischemia. Echo (EF%) pertinent findings: June 03, 2023. EF of 35% with global hypokinesis. No aortic stenosis. Heart catheterization pertinent findings: June 11, 2023. Left ventricular ejection fraction 35%. Proximal to mid LAD has 60% lesion. Proximal RCA 50% lesion. Mid left circumflex 40% lesion. Moderate reduced LV systolic function. Conservative treatment at this point. Consult pertinent findings: June 30, 2024. Dr. Last?cardiology. 1. Heart failure with reduced ejection fraction-currently asymptomatic. Continue medication and dialysis. 2. Coronary artery disease status post stent-patient is asymptomatic however physically limited secondary to his knee pain. 3. Hypertension?elevated blood pressure. Monitor blood pressures at home. Additional pertinent findings: Holter monitor. Predominant rhythm was sinus. VE burden was less than 1%. SVE burden was 2%. 0 patient triggers noted. Recommendation Anesthesia Recommendation Anesthesia recommendation: OPTIMIZED for anesthesia
[2024-11-10 11:41] LABS: Hematocrit 35.2 % (40-54); Hemoglobin 11.3 g/dL (13.0-16.5); Mean Corp Hgb Conc 32.1 g/dL (32-36); Mean Corpuscular Volume 98.3 fL (80-94); Mean Platelet Vol. 10.6 fl (6.2-12.0); Platelet Count 163 K/mm3 (150-450); RBC Distribution Width CV 14.2 % (11.6-14.6); RBC Distribution Width SD 51.0 fl (35.1-43.9); Red Blood Count 3.58 M/mm3 (4.6-6.2); White Blood Count 7.7 K/mm3 (4.4-11.0)
[2024-11-10 12:22] LABS: Anion Gap 14 (5-15); BUN 29 mg/dL (4-19); BUN/Creat Ratio 6.6 RATIO (10-20); Calcium,Total 9.5 mg/dL (7.6-11.0); Carbon Dioxide 29.1 mmol/L (21.0-32.0); Chloride 101 mmol/L (98-108); Glucose 100 mg/dL (70-99); Potassium 4.0 mmol/L (3.3-5.1)
[2024-11-22] VITALS (9 sets, daily range): BP systolic 132–156; BP diastolic 60–97; PULSE 61–67; RESP 16–18; TEMP 36.1–36.6; O2SAT 95–100; BMI 23.1
[2024-11-22] MEDS: 0.9% Normal Saline (500mL Bag) 500 ML 15 ML IV (10:58)
--- NOTE | 2024-11-22 11:14 | PCM.HP.BLA ---
History and Physical Subjective Details: Mr. Avni Christianson is an 84 y/o male who presents to the office today for postoperative visit s/p R stage I radiobasilic fistula creation 08/25/24. He denies any pain, coolness, paresthesias, discoloration into his R hand. He denies any RUE edema. He continues to use R IJ catheter for dialysis without issue. Objective Details: A&Ox3, NAD RRR Nonlabored respirations R upper arm AV fistula with palpable thrill proximal to the antecubital crease but becomes a bit weaker to palpation moving proximally; good bruit from antecubital crease to axilla. Palpable R radial and ulnar pulses, R hand appropriately warm and pink with sensory and motor function intact. Coding Level of Care Code Global Post Op Diagnoses AV fistula I77.0 ESRD (end stage renal disease) on dialysis N18.6; Z99.2 [facility] Medical History Wears partial dentures Wears dentures Cancer Ambulates with cane Gout Anemia Easy bruising High cholesterol History of IBS Hypertension Former smoker History of echocardiogram History of stress test History of heart attack Cardiology follow-up encounter ESRD (end stage renal disease) Surgical History History of coronary artery stent placement History of appendectomy History of cholecystectomy History of colonoscopy History of left nephrectomy (1992) Hx of left knee surgery (~06/2023) Hx of hernia repair Family History Other Cancer Hypertension Kidney disease Social History Smoking Status: Former smoker Tobacco: How many years used: 20 Assessment and Plan (No Qualifiers) Assessment and Plan (1) AV fistula: Status: Acute (2) ESRD (end stage renal disease) on dialysis: Status: Chronic Plan -stage II basilic
--- NOTE | 2024-11-22 11:17 | PCM.PRE.AN2 ---
ASA Classification* ASA Classification ASA Classification: 3 Assessment & Plan Anesthesia* Anesthesia Assessment Anesthesia Assessment: Discussed sedation and/or anesthesia options, risks, benefits, and alternatives with patient/parents/legal guardian/POA. Questions invited. The patient/parents/legal guardian/POA seems to understand and agrees to proceed with anesthesia plan. Reviewed the physical assessment, medical history, allergy history and patient home medications list prior to surgery/procedure/anesthetic and documented any changes. Performed airway and anesthesia risk assessments. Anesthesia Type Anesthesia Type: General History Source History Obtained from:: Patient and Chart Anesthesia Focused Assessment* Temperature: 97.9 F Pulse Rate: 61 Blood Pressure: 156/76 Respiratory Rate: 18 Pulse Ox: 100 Oxygen Delivery Method: Room Air Airway Assessment Mouth opens: >3 cm Mallampati Score: I Teeth Condition: Full (Full upper dentures are out.) and Partial (Partial lower dentures are out. Rest of the teeth are tight.) Neck Range of motion (ROM): Limited ROM (Slight Decrease) Labs Anesthesia Preop lab: CBC WBC 7.7 K/mm3 (4.4-11.0) 11/10/24 11:15 11/10/24 RBC 3.58 M/mm3 (4.6-6.2) L 11/10/24 11:15 11/10/24 Hgb 11.3 g/dL (13.0-16.5) L 11/10/24 11:15 11/10/24 Hct 35.2 % (40-54) L 11/10/24 11:15 11/10/24 Plt Count 163 K/mm3 (150-450) 11/10/24 11:15 11/10/24 CHEMISTRY Potassium 4.0 mmol/L (3.3-5.1) 11/10/24 11:15 11/10/24 Sodium 144 mmol/L (133-145) 11/10/24 11:15 11/10/24 BUN 29 mg/dL (4-19) H 11/10/24 11:15 11/10/24 Creatinine 4.36 mg/dL (0.70-1.20) H 11/10/24 11:15 11/10/24 Glucose 100 mg/dL (70-99) H 11/10/24 11:15 11/10/24 COAG Pre-Assessment Diagnosis/Proposed Procedure Planned Operative Procedure(s): (R) Right Upper Extremity Arteriovenous Fistula,Transposition Anesthesia History Anesthesia History - rn resource nurse: Anesthesia History - rn resource nurse Hx Hospitalization No 11/07/24 11:17 Any Problems With Anesthesia No 11/07/24 11:17 Cholinesterase deficiency No 11/07/24 11:17 You/Your Family Experience No 11/07/24 11:17 fever (hyperthermia) with Relationship Recent Exposure to Contagious No 11/22/24 10:44 Disease Does patient have nerve No 11/07/24 11:17 stimulator Patient instructed to have device shut off --Does patient have Pacemaker No 11/22/24 10:44 or ICD? When Was Last Pacemaker Check QUESTION #4 FULL TEXT: You/Your Family Experience fever (hyperthermia) with Anesthesia Last Oral Intake Last Oral intake: Last Oral Intake NPO since 04:30 11/22/24 10:44 Meds taken in AM with sips of Yes 11/22/24 10:44 water? Meds patient instructed to see medlist 11/22/24 10:44 take am of surgery Any additional information?: Yes Meds taken in AM with sips of water?: Yes PONV PONV - rn resource nurse: PONV - rn resource nurse Female No 11/07/24 11:17 HX of Motion Sickness No 11/07/24 11:17 HX of N/V After Surgery No 11/07/24 11:17 Non-Smoker Yes 11/07/24 11:17 Duration of Surgery greater Yes 11/07/24 11:17 than 60 minutes Number of Risk Factors 2 11/07/24 11:17 PONV Score Moderate Risk 11/07/24 11:17 Height & Weight Height & Weight: Anesthesia: Height & Weight Height 6 ft 11/22/24 10:44 Weight: 77.4 kg 11/22/24 10:44 Body Mass Index (BMI) 23.1 11/22/24 10:44 Respiratory Assessment Respiratory Assessment - rn resource nurse: Respiratory Tract Infection Hx - rn resource nurse Hx Respiratory Tract Infection No 11/07/24 11:17 STOP Sleep Apnea STOP Sleep Apnea - rn resource nurse: STOP Sleep Apnea - rn resource nurse Hx Hypertension Yes: PER PT, CONTROLLED ON 11/07/24 11:17 MEDS Hx Sleep Apnea No 11/07/24 11:17 CPAP BIPAP Do you snore loudly (louder No 11/07/24 11:17 than talking or can be heard Do you often feel tired/ No 11/07/24 11:17 fatigued/ sleepy during daytime? Has anyone observed you stop No 11/07/24 11:17 breathing during sleep? STOP Results Negative 11/07/24 11:17 QUESTION #5 FULL TEXT : Do you snore loudly (louder than talking or can be heard through closed doors)? Tobacco Use History Tobacco Use History - rn resource nurse: Tobacco Use History - rn resource nurse Tobacco Use Smoking Status Former smoker 11/07/24 11:17 Hx Tobacco Use No 11/07/24 11:17 Years Smoking Packs Smoked per Day Smoking Cessation Date was No - quit smoking greater 11/07/24 11:17 within the last 15 years than 15 years ago Hx Smoking Cessation Date Hx Smoking Cessation Counseling Hematologic Medial History Hematologic Hx - rn resource nurse: Hematologic Medical Hx - wildlife officer Hx of Blood Transfusion Yes 11/07/24 11:17 Hx of Transfusion in last 3 No 11/07/24 11:17 Months Date of Last Transfusion (if within last 3 months) Ever experience any problems No 11/07/24 11:17 with transfusion(s)? Specify any problems Hx of Preganancy in last 3 N/A 11/07/24 11:17 Months Nurse Filling Out Transfusion [facility]FF[facility] 11/07/24 11:17 & Questions: Date: 11/07/24 11/07/24 11:17 Time: 11:19 11/07/24 11:17 Patient unable to answer at this time (ie. confused, unrespo /Reproduction History /Reproductive History - rn resource nurse: /Reproductive Hx- rn resource nurse Hx Now No 11/07/24 11:17 Gestational Age (in weeks): EDC: Hx Hx Para Hx Section SAB No 11/07/24 11:17 Active Medications Active Medications: Current Medications Generic Name Dose Route Start Last Admin Trade Name Freq PRN Reason Stop Dose Admin Cefazolin Sodium 2 gm/ Sodium 110 mls @ 200 mls/hr 11/22/24 12:00 Chloride IV 11/22/24 12:32 INTRAOP ONE Sodium Chloride 500 mls @ 0 mls/hr 11/22/24 10:30 11/22/24 10:58 IV 15 mls/hr .Q0M GAMA Administration KVO PFSH Medical History Wears glasses Wears partial dentures Wears dentures Cancer Ambulates with cane Gout Anemia Easy bruising High cholesterol History of IBS Hypertension Former smoker History of echocardiogram History of stress test History of heart attack Cardiology follow-up encounter ESRD (end stage renal disease) Home Medications ?Medication ?Instructions ?Recorded ?Last Taken ?Type allopurinol 100 mg tablet 100 mg PO QDAY 04/14/24 11/22/24 History amlodipine 10 mg tablet 10 mg PO QDAY 04/14/24 11/22/24 History atorvastatin 40 mg tablet 40 mg PO QDAY 04/14/24 11/21/24 History doxazosin 2 mg tablet 2 mg PO BID 04/14/24 11/22/24 History hydralazine 50 mg tablet 50 mg PO TID 04/14/24 11/22/24 History losartan 25 mg tablet 25 mg PO QHS 04/14/24 11/21/24 History metoprolol succinate 25 mg 25 mg PO QDAY 04/14/24 11/22/24 History tablet,extended release 24 hr sodium bicarbonate 650 mg tablet 650 mg PO BID 04/14/24 11/22/24 History tamsulosin 0.4 mg capsule 0.4 mg PO QHS 04/14/24 11/21/24 History aspirin 81 mg capsule 81 mg PO DAILY 08/11/24 11/22/24 History Allergy/AdvReac Type Severity Reaction Status Date / Time No Known Allergies Allergy Verified 11/22/24 11:05 Family History Other Cancer Hypertension Kidney disease Surgical History History of coronary artery stent placement History of appendectomy History of cholecystectomy History of colonoscopy History of left nephrectomy (1992) Hx of left knee surgery (~06/2023) Hx of hernia repair Social History Smoking Status: Former smoker Tobacco: How many years used: 20 Review of Systems (Anesthesia) ROS Narrative System reviewed and no additional complaints, except as documented.
[2024-11-22] MEDS: Cefazolin 1 GM/5 ML Vial 2 GM IV (11:40)
[2024-11-22] MEDS: fentaNYL 100 MCG/2 ML Ampul 75 MCG IV (12:05)
[2024-11-22] MEDS: Heparin Injection (Vial) 5,000 UNIT/ML VIAL 7000 UNIT IV (13:02)
--- NOTE | 2024-11-22 13:59 | DCINST_ITS ---
Discharge Instructions Diet Discharge Diet: No restrictions Activity Lifting Restrictions: do not lift > 20 lbs with right arm for 3 weeks Additional Activity Instructions:: do not submerge incision for 3 weeks Dressing / Incision Call your doctor if your incision/area has: Sudden Increased Bleeding, Increased Pain/ Swelling, Increased Redness and Foul Smelling Discharge Remove Dressing in: 2 days Cleanse incision/area with: Soap & Water Follow Up Care Test Results: Test results from this visit will be discussed in further detail at your follow- up appointment, if applicable. Discharge Plan Admission Attending Provider: Raghavendra Lizama Primary Care Provider: Steve Byers Instructions Print Language: Georgian Discharge Orders/Prescriptions Prescriptions: New oxycodone 5 mg tablet 5 mg PO Q8H PRN (Reason: pain) 3 Days Qty: 9 0RF Continued allopurinol 100 mg tablet 100 mg PO QDAY amlodipine 10 mg tablet 10 mg PO QDAY atorvastatin 40 mg tablet 40 mg PO QDAY doxazosin 2 mg tablet 2 mg PO BID hydralazine 50 mg tablet 50 mg PO TID metoprolol succinate 25 mg tablet extended release 24 hr 25 mg PO QDAY sodium bicarbonate 650 mg tablet 650 mg PO BID tamsulosin 0.4 mg capsule 0.4 mg PO QHS losartan 25 mg tablet 25 mg PO QHS aspirin 81 mg capsule 81 mg PO DAILY Referrals / Follow Up: Steve Byers MD [Primary Care Provider] - Disposition Disposition (needs filled in before D/C Order can be placed): Home, Self Care
--- NOTE | 2024-11-22 14:15 | PCM.POST.ANE ---
Anesthesia: Postop Eval I Current Vital Signs Temperature: 97.6 F Pulse Rate: 65 Blood Pressure: 154/85 Respiratory Rate: 16 Pulse Ox: 96 Oxygen Delivery Method: Room Air Assessment Airway patent: Yes Spontaneous unlabored respirations: Yes Mental status: Awake and Calm nausea: No Vomiting: No Anesthesia Complication: No Fluid Hydration Crystalloid volume administer (ml): 400 Total IV fluid infused: 400 Progress Note Anesthesia document: Postop Eval 1 completed: Yes
--- NOTE | 2024-11-22 16:01 | PCM.OPRPT ---
Operative Report (Standard) Operative Information Date of Procedure: 11/22/24 Pre-Operative Diagnosis: End-stage renal disease with prior right stage I basilic fistula Post-Operative Diagnosis: Same Surgery/Procedure Performed: Stage II basilic fistula transposition sisal picker: Yes Insurance Follow Up Representative: Zoila Capone Tasks completed by hearing and speech assistant: Opening, Closing, Opening & closing, Hemostasis: Tie and Retracting Type of Anesthesia: General RN Documented Start/Stop Times: Operation Date: 11/22/24 12:00 Case Time Into Pre-Op 11/22/24 10:16 Out of Pre-Op 11/22/24 11:29 Anesthesia Start 11/22/24 11:32 Into Room 11/22/24 11:32 Procedure Start 11/22/24 11:59 Procedure End 11/22/24 14:09 Anesthesia End 11/22/24 14:13 Out of Room 11/22/24 14:13 Into Recovery 11/22/24 14:16 Into Phase II Recovery 11/22/24 14:40 Out of Recovery 11/22/24 14:40 Procedure Start Time: 12:00 Procedure Stop Time: 14:10 Select all DRAINS/GRAFTS/IMPLANTS that apply: Graft Graft details: [place] PTFE 6mm standard wall interposition graft Estimated Blood Loss: 15 Specimen collected: No Description of surgery: HPI: Patient is an 84-year-old male with end-stage renal disease currently on dialysis via tunneled catheter. He previously had a right stage I basilic fistula creation which has matured to satisfactory size so he presents now for transposition. Description of procedure: Upon obtaining informed consent and verification of correct patient procedure site the patient was taken to the operating where he was placed under general anesthesia. He was then positioned prepped and draped in usual sterile fashion time was performed. The basilic vein was then marked with ultrasound and the vessel found to be with satisfactory caliber throughout with confluence to the deep system at the axilla. Longitudinal incision was made over the length of the fistula and Bovie used to dissect down to the subcutaneous tissue. Self-retaining retractors put in position further dissection carried down to the fascia which was then incised with care taken to identify protect adjacent nerves. Sharp dissection was then used to dissect through the basilic vein with sidebranches ligated with silk ties and divided. Once the vessel was mobilized throughout the entirety of the surgical field a tunneler was then used to create a tunnel along the anterior aspect of the upper arm and the patient heparinized and allowed to circulate for 3 minutes. The vein was then marked to maintain orientation and clamped at the proximal and distal extent of the surgical field. The vessel was then divided and extracted from behind the adjacent nerves. A 6 mm [place] PTFE graft was then sutured in end-to-end fashion with 5-0 Prolene and then secured to the tunneler. This was then pulled through the subcutaneous tunnel to the superior aspect of the incision. The graft was then cut the length and anastomosis performed to the outflow vein end-to-end fashion with a 5-0 Prolene. Prior to completing suture line the vessels were backbled and after completing the suture line clamps removed and satisfactory stasis was observed. There is a palpable thrill throughout the fistula and a palpable radial pulse at the wrist. Heparin was then reversed with protamine and incision closed with 2-0 Vicryl, 3-0 Vicryl, 4-0 Monocryl and Dermabond for the skin. The patient was then awakened anesthesia taken to the recovery room with anticipated discharge to home. Surgical Findings: Palpable radial pulse,+ thrill Complications Complications: No
--- NOTE | 2024-11-22 16:03 | PCM.POSTANE2 ---
Anesthesia Postop Eval I Sum Anesthesia Postop Eval I Summary Anesthesia Postop Eval I Summary: Anesthesia Postop Eval I: Assessment Summary Airway patent Spontaneous unlabored respirations Mental status nausea Vomiting Anesthesia Postop Eval I: Fluid Summary Crystalloid volume administer (ml) Colloids volume administered ( ml) Blood Product volume administered (ml) Total IV fluid infused Anesthesia Postop Eval I: Summary Notes Anesthesia Complication Anesthesia Complication Comment: Post-operative progress note Anesthesia: Postop Eval II Evaluation Mental status: Awake and Calm Pain Level: 1 nausea: No Vomiting: No Complications Anesthesia Complication: No
--- NOTE | 2024-11-22 16:48 | PCM.POSTANE2 ---
Anesthesia Postop Eval I Sum Postop Eval Completion status Anesthesia document: Postop Eval 1 completed: Yes Anesthesia Postop Eval I Summary Anesthesia Postop Eval I Summary: Anesthesia Postop Eval I: Assessment Summary Airway patent Yes 11/22/24 16:24 Spontaneous unlabored Yes 11/22/24 16:24 respirations Mental status Awake,Calm 11/22/24 16:24 nausea No 11/22/24 16:24 Vomiting No 11/22/24 16:24 Anesthesia Postop Eval I: Fluid Summary Crystalloid volume administer 400 11/22/24 16:24 (ml) Colloids volume administered ( ml) Blood Product volume administered (ml) Total IV fluid infused 400 11/22/24 16:24 Anesthesia Postop Eval I: Summary Notes Anesthesia Complication No 11/22/24 16:24 Anesthesia Complication Comment: Post-operative progress note Anesthesia: Postop Eval II Evaluation Mental status: Awake and Calm Pain Level: 0 nausea: No Vomiting: No Complications Anesthesia Complication: No
== END 2024-11-22 16:00 | disposition home or self-care (01) ==
LOC: SDC 10:11 → AC 10:12
PROVIDERS: PCP Family Medicine; Referring Provider Surgery Trauma Surgery; Visit Provider Surgery Trauma Surgery
PROC: (CPT 36832; principal; 2024-11-22 11:45)
DX: Z49.01 Encounter for fitting and adjustment of extracorporeal dialysis catheter (principal); I12.0 Hypertensive chronic kidney disease with stage 5 chronic kidney disease or end stage renal disease; N18.6 End stage renal disease; Z87.891 Personal history of nicotine dependence; E78.00 Pure hypercholesterolemia, unspecified; I77.0 Arteriovenous fistula, acquired; Z79.899 Other long term (current) drug therapy; Z79.82 Long term (current) use of aspirin
CPT/HCPCS: 36832; 01844; 36415; 80048; 85027; A4648; C1768; A4216; J2405

== ENCOUNTER → 2024-12-20 | Outpatient (CLI) | payer MEDICARE, OTHER, SELFPAY ==
--- OUTSIDE RECORDS SUMMARY | 2024-07-21 07:54 | XMS RPT_ITS ---
Author Name Auto Generated Organization OHIP Support Name Relationship Address Phone RAYMUNDO, PAT Next of Kin Unknown + RETIRED Next of Kin Unknown Unavailable RAYMUNDO, PAT Next of Kin Unknown + RETIRED Next of Kin Unknown Unavailable RAYMUNDO, DIONE Next of Kin [address] [place] [address] + RAYMUNDO, PAT Next of Kin Unknown + RETIRED Next of Kin Unknown Unavailable RAYMUNDO, PAT Next of Kin Unknown + RETIRED Next of Kin Unknown Unavailable RAYMUNDO, PAT Next of Kin Unknown + RETIRED Next of Kin Unknown Unavailable RAYMUNDO, PAT Next of Kin Unknown + RETIRED Next of Kin Unknown Unavailable RAYMUNDO, PAT Next of Kin Unknown + RETIRED Next of Kin Unknown Unavailable RAYMUNDO, PAT Next of Kin Unknown + RETIRED Next of Kin Unknown Unavailable RAYMUNDO, PAT Next of Kin Unknown + RETIRED Next of Kin Unknown Unavailable RAYMUNDO, PAT Next of Kin Unknown + RETIRED Next of Kin Unknown Unavailable RAYMUNDO, PAT Next of Kin Unknown + RETIRED Next of Kin Unknown Unavailable RAYMUNDO, PAT Next of Kin Unknown + RETIRED Next of Kin Unknown Unavailable RAYMUNDO, PAT Next of Kin Unknown + RETIRED Next of Kin Unknown Unavailable RAYMUNDO, PAT Next of Kin Unknown + RETIRED Next of Kin Unknown Unavailable Care Team Providers Care Data Power Consultant Name Role Phone JAYLIN VUONG Attending Unava ilMAYA Long Primary Care Unavailable GUARDADO, CHRISTOPHER D Attending Unavailable GUARDADO, CHRISTOPHER D Referring Unavailable GUARDADO, CHRISTOPHER D Primary Care Unavailable YOUNG, LEYLA M Attending Unavailable GUARDADO, CHRISTOPHER D Primary Care Unavailable YOUNG, LEYLA M Attending Unavailable GUARDADO, CHRISTOPHER D Primary Care Unavailable YOUNG, LEYLA M Attending Unavailable YOUNG, LEYLA M Referring Unavailable GUARDADO, CHRISTOPHER D Primary Care Unavailable JAYLIN VUONG Attending Unava ilable GUARDADO, CHRISTOPHER D Primary Care Unavailable GUARDADO, CHRISTOPHER D Attending Unavailable GUARDADO, CHRISTOPHER D Referring Unavailable GUARDADO, CHRISTOPHER D Primary Care Unavailable GUARDADO, CHRISTOPHER D Primary Care Unavailable YOUNG, MARE M Referring Unavailable GUARDADO, CHRISTOPHER D Primary Care Unavailable YOUNG, MARE M Referring Unavailable GUARDADO, CHRISTOPHER D Primary Care Unavailable YOUNG, LEYLA M Referring Unavailable GUARDADO, CHRISTOPHER D Primary Care Unavailable YOUNG, MARE M Referring Unavailable GUARDADO, CHRISTOPHER D Primary Care Unavailable YOUNG, MARE M Referring Unavailable GUARDADO, CHRISTOPHER D Primary Care Unavailable YOUNG, MARE M Admitting Unavailable YOUNG, MARE M Attending Unavailable GUARDADO, CHRISTOPHER D Primary Care Unavailable YOUNG, MARE M Referring Unavailable EUGENEBISI FUNES NGerald Attending Unavailable YOUNG, LEYLA Referring Unavailable YOUNG, LEYLA Admitting Unavailable GUARDADO, CHRISTOPHER GLENYS Primary Care Unavaila ble PROBLEMS DATE TYPE CONDITION / CODE ATTENDING STATUS [facility] 07/21/2024 Admitting Diagnosis Type 2 diabetes mellitus without complications / E11.9(ICD-10) MAYA GUARDADO [facility] 07/21/2024 Admitting Diagnosis Disorder of kidney and ureter, unspecified / N28.9(ICD-10) DEBBY ROSWELL [facility] 07/21/2024 Admitting Diagnosis Type 2 diabetes mellitus with diabetic chronic kidney disease / E11.22(ICD-10) [facility] 07/21/2024 Admitting Diagnosis Chronic kidney disease, stage 3 unspecified (Multi) / N18.30(ICD-10) [facility]24 Admitting Diagnosis Chronic kidney disease, stage 3b (Multi) / N18.32(ICD-10) [facility] 02/11/2024 Admitting Diagnosis End stage renal disease (Multi) / N18.6(ICD-10) [facility] 07/15/2022 Admitting Diagnosis Non-ST elevation (NSTEMI) myocardial infarction (Multi) / I21.4(ICD-10) [facility] 06/30/2024 Admitting Diagnosis 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 / I25.119(ICD-10) [facility] 03/01/2024 Admitting diagnosis Consult / UNK(Unknown) BISI KNIGHT [facility] 02/04/2024 Admitting Diagnosis Chronic kidney disease, stage 5 (Multi) / N18.5(ICD-10) [facility] 01/12/2024 Admitting Diagnosis Chronic kidney disease, stage 4 (severe) (Multi) / N18.4(ICD-10) [facility] 01/12/2024 Admitting Diagnosis Anemia in chronic kidney disease / D63.1(ICD-10) [facility] 07/15/2022 Admitting Diagnosis Malignant neoplasm of unspecified kidney, except renal pelvis (Multi) / C64.9(ICD-10) MAYA GUARDADO [facility] 07/15/2022 Admitting Diagnosis Chronic gout due to renal impairment, unspecified site, without tophus (tophi) / M1A.30X0(ICD-10) MAYA GUARDADO [facility] 07/15/2022 Admitting Diagnosis Mixed hyperlipidemia / E78.2(ICD-10) MAYA GUARDADO [facility] 01/21/2024 Admitting Diagnosis Type 2 diabetes mellitus without complications (Multi) / E11.9(ICD-10) MAYA GUARDADO [facility] 06/08/2023 Admitting Diagnosis Unspecified atherosclerosis / I70.90(ICD-10) [facility] 11/27/2022 Admitting Diagnosis Atherosclerotic heart disease of morongo coronary artery without angina pectoris / I25.10(ICD-10) [facility] 07/15/2022 Admitting Diagnosis Essential (primary) hypertension / I10(ICD-10) [facility] 12/31/2023 Admitting Diagnosis Chronic systolic (congestive) heart failure / I50.22(ICD-10) [facility] 12/31/2023 Admitting Diagnosis 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 ([facility]) / I25.119(ICD-10) [facility] 12/31/2023 Admitting Diagnosis Dilated cardiomyopathy (Multi) / I42.0(ICD-10) [facility] 12/31/2023 Admitting Diagnosis Shortness of breath / R06.02(ICD-10) [facility] 12/31/2023 Admitting Diagnosis Unilateral primary osteoarthritis, left knee / M17.12(ICD-10) [facility] 12/31/2023 Admitting Diagnosis Other forms of dyspnea / R06.09(ICD-10) [facility] PROCEDURES No Procedure Records Found RESULTS ALBUMIN, RANDOM URINE W/CREATININE Collected: 07/15/2024 10:02 AM Status: F Source: [employer] Order Comment: SPLIT 025 FROM [id number] FASTING:NO FASTING: NO TYPE CODE TESTS RESULT OUT OF RANGE REFERENCE UNITS LAB [id number] CREATININE, RANDOM URINE 77 Normal 20-320 mg/dL LAB [id number] ALBUMIN, URINE 29.9 Normal See Note: mg/dL Result Comment: Reference Ra nge: Reference Range Not established Results verified by repeat analysis on dilution. LAB [id number] ALBUMIN/CRE ATININE RATIO, RANDOM URINE 388 High <30 mg/g creat Result Comment: The ADA defines abnormalities in albumin excretion as follows: Albuminuria Category Result (mg/g creatinine) Normal to Mildly increased <30 Moderately increased 30-299 Severely increased > OR = 300 The ADA recommends that at least two of three specimens collected within a 3-6 month period be abnormal before considering a patient to be within a diagnostic category. Performed By: #### [id number] #### [facility] [address], [address] [place] [address] Sociology Teacher: Abelardo Donahue MD COMPREHENSIVE METABOLIC PANE L W/ANION GAP Collected: 07/14/2024 8:08 AM Status: F Source: [facility] Order Comment: FASTING:YES PATIENT UNABLE TO VOID; ADVISED TO RETURN FOR COLLECTION. FASTING: YES TYPE CODE TESTS RESULT OUT OF RANGE REFERENCE UNITS LAB [id number] GLUCOSE 96 Normal 65-99 mg/dL Result Comment: Fasting reference interval LAB [id number] UREA NITROGEN (BUN) 33 High 7-25 mg/dL LAB [id number] CREATININE 4.60 High 0.70-1.22 mg/dL LAB [id number] EGFR 12 Low > OR = 60 mL/min/1 .73m2 LAB [id number] SODIUM 140 Normal 135-146 mmol/L LAB [id number] POTASSIUM 4.6 Normal 3.5-5.3 mmol/L LAB [id number] CHLORIDE 100 Normal 98-110 mmol/L LAB 34300890 CARBON DIOXIDE 27 Normal 20-32 mmol/L LAB [id number] ELECTROLYTE BALANCE 13 Normal 7-17 mmol/L (calc) LAB [id number] CALCIUM 9.3 Normal 8.6-10.3 mg/dL LAB [id number] PROTEIN, TOTAL 6.2 Normal 6.1-8.1 g/dL LAB [id number] ALBUMIN 4.0 Normal 3.6-5.1 g/dL LAB 10055804 BILIRUBIN, TOTAL 0.6 Normal 0.2-1.2 mg/dL LAB [id number] ALKALINE PHOSPHATASE 54 Normal 35-144 U/L LAB [id number] AST 18 Normal 10-35 U/L LAB [id number] ALT 10 Normal 9-46 U/L Performed By: #### 48513, 63 99, 63128 #### [facility] [address] [facility], [address] [place] [address] Sociology Teacher: Abelardo Donahue MD CBC (INCLUDES DIFF/PLT) Collected: 06/22 8:08 AM Status: F Source: [facility] TYPE CODE TESTS RESULT OUT OF RANGE REFERENCE UNITS LAB [id number] WHITE BLOOD CELL COUNT 7.6 Normal 3.8-10.8 Thousand /uL LAB [id number] RED BLOOD CELL COUNT 3.49 Low 4.20-5.80 Million/ uL LAB [id number] HEMOGLOBIN 10.7 Low 13.2-17.1 g/dL LAB [id number] HEMATOCRIT 33.5 Low 38.5-50.0 % LAB [id number] MCV 96.0 Normal 80.0-100.0 fL LAB [id number] MCH 30.7 Normal 27.0-33.0 pg LAB [id number] MCHC 31.9 Low 32.0-36.0 g/dL Result Comment: For adults, a slight decrease in the calculated MCHC value (in the range of 30 to 32 g/dL) is most likely not clinically significant; however, it should be interpreted with caution in correlation with other red cell parameters and the patient's clinical condition. LAB [id number] RDW 13.8 Normal 11.0-15.0 % LAB [id number] PLATELET COUNT 180 Normal 140-400 Thousand /uL LAB [id number] MPV 11.4 Normal 7.5-12.5 fL LAB [id number] ABSOLUTE NEUTROPHILS 3557 Normal 1437-0218 cells/uL LAB [id number] ABSOLUTE LYMPHOCYTES 3420 Normal 850-3900 cells/uL LAB [id number] ABSOLUTE MONOCYTES 562 Normal 200-950 cells/uL LAB [id number] ABSOLUTE EOSINOPHILS 23 Normal 15-500 cells/uL LAB [id number] ABSOLUTE BASOPHILS 38 Normal 0-200 cells/uL LAB [id number] NEUTROPHILS 46.8 Normal % LAB [id number] LYMPHOCYTES 45.0 Normal % LAB [id number] MONOCYTES 7.4 Normal % LAB 05924992 EOSINOPHILS 0.3 Normal % LAB [id number] BASOPHILS 0.5 Normal % Performed By: #### 35546, 63 99, 07699 #### [facility] [address], [address] [place], [place] [id number] Sociology Teacher: Abelardo Donahue MD TSH Collected: 8:08 AM Status: F Source: [facility] TYPE CODE TESTS RESULT OUT OF RANGE REFERENCE UNITS LAB [id number] TSH 3.08 Normal 0.40-4.50 mIU/L Performed By: #### 34618, 63 99, 52308 #### [facility] [address], [address] [place], [place] [address] Sociology Teacher: Abelardo Donahue MD HEMOGLOBIN A1C WITH EAG Collected: 06/22 8:08 AM Status: F Source: [facility] TYPE CODE TESTS RESULT OUT OF RANGE REFERENCE UNITS LAB [id number] HEMOGLOBIN A1c 5.1 Normal <5.7 % Result Comment: For the purp ose of screening for the presence of diabetes: <5.7% Consistent with the absence of diabetes 5.7-6.4% Consistent with increased risk for diabetes (prediabetes) > or =6.5% Consistent with diabetes This assay result is consistent with a decreased risk of diabetes. Currently, no consensus exists regarding use of hemoglobin A1c for diagnosis of diabetes in children. According to [place] Diabetes Association (ADA) guidelines, hemoglobin A1c <7.0% represents optimal control in non- diabetic patients. Different metrics may apply to specific patient populations. Standards of Medical Care in Diabetes(ADA). LAB [id number] eAG (mg/dL) 100 mg/dL LAB [id number] eAG (mmol/L) 5.5 mmol/L Performed By: #### 71929, 63 99, 76557 #### [facility] [address], [address] [place] [address] Sociology Teacher: Abelardo Donahue MD PROGRESS Observed: 03/01/2024 10:41 AM Status: COMPLETED Source: [facility] PATIENT: Avni Fonseca DO B: 1940 AGE: 83 y.o. SEX: male RACE: [1] PCP: Maya Guardado MD REFERRAL: Leyla Tinoco CNP Note template CODING [employer], [employer] PLACE OF SERVICE [x] OFFICE REVIEWED Chart Yes HISTORIAN Source Patient Quality Good Accompanied by His CC I have kidney failure HPI Patient presents to discuss PD cath insertion. He has ESRF and is on HD via a R chest dialysis catheter. Patient denies fevers, chills, nausea, emesis, constipation, melena, recent weight loss, chest pain, shortness of breath, or bleeding dyscrasias. He has been on PD for a short time. He states he has a lot of events in February such as his anniversary. He states he lives close to the dialysis center and is okay with going 3 X / week for HD. ROS Questionnaire Reviewed: Today [x] Pertinent positives listed below [] No pertinent positives [] Unable to obtain CONST GI NEURO [] fevers [] nausea [] seizures [] chills [] vomiting [] syncope [] fatigue [] constipation [] stroke [] recent weight loss [x] diarrhea [] weakness EYES [] blood in stools PSYCH [] double vision [] abdominal pain [] depression [] cataracts [] appetite changes [] anxiety ENT/MOUTH ENDO [] difficulty swallowing [] blood in urine [] high or low blood sugar [] bloody noses [] painful urination [] thyroid problems CV [] frequent urination HEM / LYMPH [x] high blood pressure [] urine infections [] anemia [] chest pain or angina [] urinary incontinence [] lymph node enlargement [] heart rhythm problem MS [] bleeding problems [] dyspnea on exertion [] arthritis BREAST [] blood clots [] gout [] breast pain [] leg swelling SKIN [] nipple discharge RESP [] rashes [] breast mass [] shortness of breath [] skin cancer [] asthma [] cough [] sleep apnea Other Comments: PMH / PSH Past Medical History: Diagnosis Date Anemia Cancer of kidney (HCC) Hodgkins Lymphoma / Wilms tumor Cataracts, bilateral Cholangitis Coronary artery disease COVID Dementia (HCC) Diabetes mellitus (HCC) patient denies having this Dry eye syndrome End stage renal failure on dialysis (HCC) History of cancer chemotherapy Hodgkin lymphoma (HCC) Stage 3 Hyperlipidemia Hypertension IBS (irritable bowel syndrome) Myocardial infarction (HCC) 1999 Past Surgical History: Procedure Laterality Date APPENDECTOMY CARDIAC CATHETERIZATION 2000 CATARACT EXTRACTION, BILATERAL 02/01/2014 CHOLECYSTECTOMY many years ago CORONARY STENT PLACEMENT around age 61 CT COLONOSCOPY 04/27/2022 CT COLONOSCOPY ESOPHAGOGASTRODUODENOSCOPY 2003 FRONT TEETH KNOCKED OUT playing baseball, partial HERNIA REPAIR Bilateral 01/2015 Inguinal NEPHRECTOMY Left 1992 TOTAL KNEE ARTHROPLASTY Left 06/2023 TRANSFUSION BLOOD PRODUCT FAM HX Family History Problem Relation Age of Onset Heart attack Mother Hypertension Mother Heart attack Brother SOC HX Social History Occupational History 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 Tobacco Use Smoking status: Former Types: Cigarettes Smokeless tobacco: Never Tobacco comments: Quit smoking 40 years ago, one pack daily for 20 Substance and Sexual Activity Alcohol use: Never Drug use: Never Sexual activity: Not on file MEDICATIONS Current Outpatient Medications Medication Instructions allopurinoL (ZYLOPRIM) 300 mg, Daily amLODIPine (NORVASC) 10 mg, Daily aspirin 325 mg, Daily aspirin 81 mg, Daily atorvastatin (LIPITOR) 40 mg, Daily CINNAMON BARK (CINNAMON ORAL) 2 capsules, 2 times daily cycloSPORINE (RESTASIS) 0.05 % ophthalmic emulsion 1 drop, 2 times daily diphenoxylate-atropine (LOMOTIL) 2.5-0.025 mg per tablet 1 tablet, 4 times daily PRN doxazosin (CARDURA) 2 MG tablet 1 tablet fish oil-omega-3 fatty acids 300-1,000 mg capsule 2 g, Daily hydrALAZINE (APRESOLINE) 50 MG tablet 1 tablet hydroCHLOROthiazide (MICROZIDE) 12.5 mg, Daily lisinopriL (PRINIVIL,ZESTRIL) 10 mg, Daily losartan (COZAAR) 50 mg, Daily metoprolol succinate (TOPROL-XL) 25 mg, Daily multivitamin (multivitamin) per tablet 1 tablet, Daily sodium bicarbonate 650 MG tablet Take by mouth . tamsulosin (FLOMAX) 0.4 mg, Daily ALLERGIES No Known Allergies EXAM Vitals BP 139/78 Pulse 63 Resp 16 Ht 6' Wt 78 kg (172 lb) SpO2 95% BMI 23.33 kg/m Obesity No Const Alert, oriented, cooperative, pleasant, NAD HEENT AT/NC, Perr Neck no thyromegaly, no masses, no bruits Cor RRR, no murmurs, R chest dialysis catheter Lungs clear to auscultation, no wheezes or rales Abd soft, NT, ND, no masses, no HSM, no peritoneal signs Hernia no abdominal wall hernias Musc / Back no CVA tenderness Ext no LE edema, no UE or LE deformities, normal pulses B LE's Neuro no gross deficits, walks with a cane Psych normal affect Lymph no neck LA Skin / Other No obvious rashes ASSESSMENT / PLAN ESRF on HD. Discussed PD and cath insertion. Patient prefers to continue on HD for now after we discussed the risks, rationale, benefits, and alternatives. Diff Dx As above. Patient Risks [x] Age [] SH [] Anticoagulation: [x] PMH: CAD, Anemia, DM, HTN, ESRF, previous ME [x] Previous procedure same surgical field / organ [] Other: Procedural Risks Bleeding, Infection, Risks of anesthesia, Injury to abdominal structures, failure of PD in the future. Anticipated Anesthesia General Consent [x] Risks / Rationale / Benefits / Alternatives discussed [] Informed consent obtained Questions Answered [x] Location [] [facility] [] [facility] ORDERS / F/U F/u PRN PROBLEMS ADDRESSED & THEIR COMPLEXITY Acute / Chronic that poses threat to life / bodily function (OP 5_IP 3_ER/C 5). *For select categories, select higher level if >=2 problems addressed Documentation: ESRF RISK OF MANAGEMENT / TREATMENT Shared MDM - Major Elective Sx (+) pt / proc risk factors (OP 5_IP 3_ER/C 5). Documentation: Lap PD cath insertion, shared decision making [x] See Patient and Procedure specific risks above. AUTHENTICATED BY BISI KNIGHT, ON 03/01/2024 16:05:31 COAGULATION TISSUE FACTOR INDUCED Collected: 02/11/2024 10:35 AM Status: F Source: [facility] TYPE CODE TESTS RESULT OUT OF RANGE REFERENCE UNITS LAB 5902-2(LOINC) Coagulation tissue factor induced 11.4 9.8-12.8 seconds LAB 6301-6(LOINC) Coagulation tissue factor induced.INR 1.0 0.9-1.1 NA Performed By: #### 5902-2 ## ## SHEREE SANTOS ([id number]) [facility] ([facility]) [address] [place] [address] HEPATITIS B VIRUS SURFACE AB Collected: 02/11/2024 10:35 AM Status: F Source: [facility] TYPE CODE TESTS RESULT OUT OF RANGE REFERENCE UNITS LAB 85670-1[facility] Hepatitis B virus surface Ab <3.1 <10.0 mIU/mL Result Comment: Interpretive Criteria: <10 mIU/mL Nonreactive >=10 mIU/mL Reactive Biotin interference may cause falsely decreased results. Patients taking a Biotin dose of up to 5 mg/day should refrain from taking Biotin for 24 hours before sample collection. Providers may contact their local laboratory for further information. Performed By: #### 08100-9 # ### MUKESH Huerta ([id number]) [facility] ([facility]) [address] [place] [address] HEPATITIS B VIRUS SURFACE AG Collected: 02/11/2024 10:35 AM Status: F Source: [facility] TYPE CODE TESTS RESULT OUT OF RANGE REFERENCE UNITS LAB 5196-1(LOINC) Hepatitis B virus surface Ag Nonreactive Nonreactive Result Comment: Biotin inter ference may cause falsely decreased results. Patients taking a Biotin dose of up to 5 mg/day should refrain from taking Biotin for 24 hours before sample collection. Providers may contact their local laboratory for further information. Performed By: #### 5196-1 ## ## MUKESH Huerta ([id number]) [facility] ([facility]) [address] [place] [address] HEPATITIS C VIRUS AB Collected: 10:35 AM Status: F Source: [facility] TYPE CODE TESTS RESULT OUT OF RANGE REFERENCE UNITS LAB 16972-8(LOINC) Hepatitis C virus Ab NON-REACTIVE Nonreactive Result Comment: Results from patients taking biotin supplements or receiving high-dose biotin therapy should be interpreted with caution due to possible interference with this test. Providers may contact their local laboratory for further information. Performed By: #### 96097-1 # ### MUKESH Huerta ([id number]) [facility] ([facility]) [address] [place], [place] [address] BASIC METABOLIC 2000 PANEL Collected: 04/12/2023 9:25 AM Status: F Source: [facility] TYPE CODE TESTS RESULT OUT OF RANGE REFERENCE UNITS LAB 2345-7(LOINC) Glucose 110 High 74-99 mg/dL LAB 2951-2(LOINC) Sodium 142 136-145 mmol/L LAB 2823-3(LOINC) Potassium 4.6 3.5-5.3 mmol/L LAB 2075-0(LOINC) Chloride 110 High 98-107 mmol/L LAB 8-9(LOINC) Carbon dioxide 21 21-32 mmo l/L LAB 42738-6(LOINC) Anion gap 16 10-20 mmol/L LAB 3094-0(LOINC) Urea nitrogen 66 High 6-23 mg/d L LAB 2160-0(LOINC) Creatinine 4.09 High 0.50-1.30 mg/dL LAB 88040-0(LOINC) Glomerular filtration rate/1.73 sq M.predicted 14 Low >60 mL/min/1 .73m*2 Result Comment: Calculations of estimated GFR are performed using the 2020 CKD- EPI Study Refit equation without the race variable for the IDMS-Traceable creatinine methods. https://jasn.asnjournals.org/content/early/ASN.4548210730 LAB 31400-6(LOINC) Calcium 8.6 8.6-10.3 mg/dL Performed By: #### 94739-1 # ### BENTLEY DANIELLE ([id number]) [facility] ([facility]) [address] [place] [address] COMPLETE BLOOD COUNT W AUTO DIFFERENTIAL PANEL Collected: 02/11/2024 9:25 AM Status: F Source: [facility] TYPE CODE TESTS RESULT OUT OF RANGE REFERENCE UNITS LAB 6690-2(LOINC) Leukocytes 7.3 4.4-11.3 x10*3/ uL LAB 68831-5(LOINC ) Erythrocytes.nuc leated/100 leukocytes 0.0 0.0-0.0 /100 WBCs LAB 789-8(LOINC) Erythrocytes 3.97 Low 4.50-5.90 x10* 6/uL LAB 718-7(LOINC) Hemoglobin 10.5 Low 13.5-17.5 g/dL LAB 4544-3(LOINC) Hematocrit 34.2 Low 41.0-52.0 % LAB 787-2(LOINC) Erythrocyte mean corpuscular volume 86 80-100 fL LAB 785-6(LOINC) Erythrocyte mean corpuscular hemoglobin 26.4 26.0-34.0 pg LAB 786-4(LOINC) Erythrocyte mean corpuscular hemoglobin concentration 30.7 Low 32.0-36.0 g/dL LAB 788-0(LOINC) Erythrocyte distribution width 18.2 High 11.5-14.5 % LAB 777-3(LOINC) Platelets 151 150-450 x10*3/uL Result Comment: reran and ve rified LAB 770-8(LOINC) Neutrophils/100 leukocytes 50.8 40.0-80.0 % LAB 90551-8(LOINC ) Granulocytes.imm ature/100 leukocytes 0.3 0.0-0.9 % Result Comment: Immature Gra nulocyte Count (IG) includes promyelocytes, myelocytes and metamyelocytes but does not include bands. Percent differential counts (%) should be interpreted in the context of the absolute cell counts (cells/UL). LAB 736-9(LOINC) Lymphocytes/100 leukocytes 41.3 13.0-44.0 % LAB 5905-5(LOINC) Monocytes/100 leukocytes 5.9 2.0-10.0 % LAB 713-8(LOINC) Eosinophils/100 leukocytes 1.2 0.0-6.0 % LAB 706-2(LOINC) Basophils/100 leukocytes 0.5 0.0-2.0 % LAB 751-8(LOINC) Neutrophils 3.72 1.60-5.50 x10*3 /uL Result Comment: Percent diff erential counts (%) should be interpreted in the context of the absolute cell counts (cells/uL). LAB 58454-7(LOINC ) Granulocytes.imm ature 0.02 0.00-0.50 x10*3/uL LAB 731-0(LOINC) Lymphocytes 3.03 High 0.80-3.00 x10*3 /uL LAB 742-7(LOINC) Monocytes 0.43 0.05-0.80 x10*3/u L LAB 711-2(LOINC) Eosinophils 0.09 0.00-0.40 x10*3 /uL LAB 704-7(LOINC) Basophils 0.04 0.00-0.10 x10*3/u L Performed By: #### 01828-9 # ### BENTLEY DANIELLE ([id number]) [facility] ([facility]) [address] [place] [address] COMPLETE BLOOD COUNT W AUTO DIFFERENTIAL PANEL Collected: 02/03/2024 7:34 AM Status: F Source: [facility] TYPE CODE TESTS RESULT OUT OF RANGE REFERENCE UNITS LAB 6690-2(LOINC) Leukocytes 8.0 4.4-11.3 x10*3/ uL LAB 49936-3(LOINC ) Erythrocytes.nuc leated/100 leukocytes 0.0 0.0-0.0 /100 WBCs LAB 789-8(LOINC) Erythrocytes 4.32 Low 4.50-5.90 x10* 6/uL LAB 718-7(LOINC) Hemoglobin 11.2 Low 13.5-17.5 g/dL LAB 4544-3(LOINC) Hematocrit 38.5 Low 41.0-52.0 % LAB 787-2(LOINC) Erythrocyte mean corpuscular volume 89 80-100 fL LAB 785-6(LOINC) Erythrocyte mean corpuscular hemoglobin 25.9 Low 26.0-34.0 pg LAB 786-4(LOINC) Erythrocyte mean corpuscular hemoglobin concentration 29.1 Low 32.0-36.0 g/dL LAB 788-0(LOINC) Erythrocyte distribution width 18.4 High 11.5-14.5 % LAB 777-3(LOINC) Platelets 106 Low 150-450 x10*3/uL LAB 770-8(LOINC) Neutrophils/100 leukocytes 50.4 40.0-80.0 % LAB 69820-9(LOINC ) Granulocytes.imm ature/100 leukocytes 0.3 0.0-0.9 % Result Comment: Immature Gra nulocyte Count (IG) includes promyelocytes, myelocytes and metamyelocytes but does not include bands. Percent differential counts (%) should be interpreted in the context of the absolute cell counts (cells/UL). LAB 736-9(LOINC) Lymphocytes/100 leukocytes 42.1 13.0-44.0 % LAB 5905-5(LOINC) Monocytes/100 leukocytes 6.0 2.0-10.0 % LAB 713-8(LOINC) Eosinophils/100 leukocytes 0.6 0.0-6.0 % LAB 706-2(LOINC) Basophils/100 leukocytes 0.6 0.0-2.0 % LAB 751-8(LOINC) Neutrophils 4.03 1.60-5.50 x10*3 /uL Result Comment: Percent diff erential counts (%) should be interpreted in the context of the absolute cell counts (cells/uL). LAB 40782-6(LOINC ) Granulocytes.imm ature 0.02 0.00-0.50 x10*3/uL LAB 731-0(LOINC) Lymphocytes 3.36 High 0.80-3.00 x10*3 /uL LAB 742-7(LOINC) Monocytes 0.48 0.05-0.80 x10*3/u L LAB 711-2(LOINC) Eosinophils 0.05 0.00-0.40 x10*3 /uL LAB 704-7(LOINC) Basophils 0.05 0.00-0.10 x10*3/u L Performed By: #### 16794-8 # ### SHEREE SANTOS ([id number]) [facility] ([facility]) [address] [place] [address] 90337 BASIC METABOLIC 2000 PANEL Collected: 04/04/2023 7:34 AM Status: F Source: [facility] TYPE CODE TESTS RESULT OUT OF RANGE REFERENCE UNITS LAB 2345-7(LOINC) Glucose 101 High 74-99 mg/dL LAB 2951-2(LOINC) Sodium 142 136-145 mmol/L LAB 2823-3(LOINC) Potassium 4.4 3.5-5.3 mmol/L LAB 2075-0(LOINC) Chloride 111 High 98-107 mmol/L LAB 2028-9(LOINC) Carbon dioxide 21 21-32 mmo l/L LAB 29118-8(LOINC) Anion gap 14 10-20 mmol/L LAB 3094-0(LOINC) Urea nitrogen 62 High 6-23 mg/d L LAB 2160-0(LOINC) Creatinine 4.06 High 0.50-1.30 mg/dL LAB 95233-0(LOINC) Glomerular filtration rate/1.73 sq M.predicted 14 Low >60 mL/min/1 .73m*2 Result Comment: Calculations of estimated GFR are performed using the 2020 CKD- EPI Study Refit equation without the race variable for the IDMS-Traceable creatinine methods. https://jasn.asnjournals.org/content//ASN.9372554741 LAB 05789-5(LOINC) Calcium 8.7 8.6-10.3 mg/dL Performed By: #### 77757-6 # ### SHEREE SANTOS ([id number]) [facility] ([facility]) [address] [place] [address] 24344 PARATHYRIN.INTACT Collected: 7:34 AM Status: F Source: [facility] TYPE CODE TESTS RESULT OUT OF RANGE REFERENCE UNITS LAB 2731-8(LOINC) Parathyrin. intact 213.7 High 18.5-88.0 pg/mL Performed By: #### 2731-8 ## ## MUKESH LYNDSAY Huerta ([id number]) [facility] ([facility]) [address] [place] [place] [id number] COMPLETE BLOOD COUNT W AUTO DIFFERENTIAL PANEL Collected: 01/28/2024 9:17 AM Status: F Source: [facility] TYPE CODE TESTS RESULT OUT OF RANGE REFERENCE UNITS LAB 6690-2(LOINC) Leukocytes 8.3 4.4-11.3 x10*3/ uL LAB 62086-4(LOINC ) Erythrocytes.nuc leated/100 leukocytes 0.0 0.0-0.0 /100 WBCs LAB 789-8(LOINC) Erythrocytes 4.33 Low 4.50-5.90 x10* 6/uL LAB 718-7(LOINC) Hemoglobin 11.3 Low 13.5-17.5 g/dL LAB 4544-3(LOINC) Hematocrit 37.4 Low 41.0-52.0 % LAB 787-2(LOINC) Erythrocyte mean corpuscular volume 86 80-100 fL LAB 785-6(LOINC) Erythrocyte mean corpuscular hemoglobin 26.1 26.0-34.0 pg LAB 786-4(LOINC) Erythrocyte mean corpuscular hemoglobin concentration 30.2 Low 32.0-36.0 g/dL LAB 788-0(LOINC) Erythrocyte distribution width 18.6 High 11.5-14.5 % LAB 777-3(LOINC) Platelets 168 150-450 x10*3/uL LAB 770-8(LOINC) Neutrophils/100 leukocytes 58.5 40.0-80.0 % LAB 81253-3(LOINC ) Granulocytes.imm ature/100 leukocytes 0.2 0.0-0.9 % Result Comment: Immature Gra nulocyte Count (IG) includes promyelocytes, myelocytes and metamyelocytes but does not include bands. Percent differential counts (%) should be interpreted in the context of the absolute cell counts (cells/UL). LAB 736-9(LOINC) Lymphocytes/100 leukocytes 33.6 13.0-44.0 % LAB 5905-5(LOINC) Monocytes/100 leukocytes 6.7 2.0-10.0 % LAB 713-8(LOINC) Eosinophils/100 leukocytes 0.5 0.0-6.0 % LAB 706-2(LOINC) Basophils/100 leukocytes 0.5 0.0-2.0 % LAB 751-8(LOINC) Neutrophils 4.83 1.60-5.50 x10*3 /uL Result Comment: Percent diff erential counts (%) should be interpreted in the context of the absolute cell counts (cells/uL). LAB 73636-1(LOINC ) Granulocytes.imm ature 0.02 0.00-0.50 x10*3/uL LAB 731-0(LOINC) Lymphocytes 2.77 0.80-3.00 x10*3 /uL LAB 742-7(LOINC) Monocytes 0.55 0.05-0.80 x10*3/u L LAB 711-2(LOINC) Eosinophils 0.04 0.00-0.40 x10*3 /uL LAB 704-7(LOINC) Basophils 0.04 0.00-0.10 x10*3/u L Performed By: #### 15195-3 # ### SHEREE SANTOS ([id number]) [facility] ([facility]) [address] [place] [address] MAGNESIUM Collected: 4 9:17 AM Status: F Source: [facility] TYPE CODE TESTS RESULT OUT OF RANGE REFERENCE UNITS LAB 61107-8(LOINC) Magnesium 2.12 1.60-2.40 mg/dL Performed By: #### 64499-9 # ### SHEREE SANTOS ([id number]) [facility] ([facility]) [address] [place] [address] PHOSPHATE Collected: 4 9:17 AM Status: F Source: [facility] TYPE CODE TESTS RESULT OUT OF RANGE REFERENCE UNITS LAB 2777-1(LOINC) Phosphate 4.8 2.5-4.9 mg/dL Result Comment: The performa nce characteristics of phosphorus testing in heparinized plasma have been validated by the individual laboratory site where testing is performed. Testing on heparinized plasma is not approved by the FDA; however, such approval is not necessary. Performed By: #### 2777-1 ## ## SHEREE SANTOS ([id number]) [facility] ([facility]) [address] [place] [address] URATE Collected: 9:17 AM Status: F Source: [facility] TYPE CODE TESTS RESULT OUT OF RANGE REFERENCE UNITS LAB 3084-1(LOINC) Urate 5.7 4.0-7.5 mg/dL Result Comment: Venipuncture immediately after or during the administration of Metamizole may lead to falsely low results. Testing should be performed immediately prior to Metamizole dosing. Performed By: #### 3084-1 ## ## BENTLEY DANIELLE ([id number]) [facility] ([facility]) [address] [place] [address] COMPREHENSIVE METABOLIC 2000 PANEL Collected: 01/28/2024 9:17 AM Status: F Source: [facility] TYPE CODE TESTS RESULT OUT OF RANGE REFERENCE UNITS LAB 2345-7(LOINC) Glucose 107 High 74-99 mg/dL LAB 2951-2(LOINC) Sodium 140 136-145 mmol/L LAB 2823-3(LOINC) Potassium 4.3 3.5-5.3 mmol/L LAB 2075-0(LOINC) Chloride 111 High 98-107 mmol/L LAB 2028-9(LOINC) Carbon dioxide 20 Low 21-32 mmo l/L LAB 91955-7(LOINC ) Anion gap 13 10-20 mmol/L LAB 3094-0(LOINC) Urea nitrogen 66 High 6-23 mg/d L LAB 2160-0(LOINC) Creatinine 4.05 High 0.50-1.30 mg/dL LAB 07615-4(LOINC ) Glomerular filtration rate/1.73 sq M.predicted 14 Low >60 mL/min/ 1.73m*2 Result Comment: Calculations of estimated GFR are performed using the 2020 CKD- EPI Study Refit equation without the race variable for the IDMS-Traceable creatinine methods. https://jasn.asnjournals.org/content/early//ASN.6027395215 LAB 18511-3(LOINC ) Calcium 8.7 8.6-10.3 mg/dL LAB 59342-2(LOINC ) Albumin 3.8 3.4-5.0 g/dL LAB 6768-6(LOINC) Alkaline phosphatase 74 33-136 U/L LAB 2885-2(LOINC) Protein 6.1 Low 6.4-8.2 g/dL LAB 91704-4(LOINC ) Aspartate aminotransferase 12 9-39 U/L LAB 1975-2(LOINC) Bilirubin 0.6 0.0-1.2 mg/dL LAB 1743-4(LOINC) Alanine aminotransferase 7 Low 10-52 U/L Result Comment: Patients alf ated with Sulfasalazine may generate falsely decreased results for ALT. Performed By: #### 63653-3 # ### BENTLEY DANIELLE ([id number]) [facility] ([facility]) [address] [place] [address] US RENAL COMPLETE Observed: 01/27/2024 6:43 AM Status: F Source: [facility] Interpreted By: Bisi Johnson STUDY: US RENAL COMPLETE; 01/27/2024 7:24 am INDICATION: Signs/Symptoms:worsening creatinine. ,N18.4 Chronic kidney disease, stage 4 (severe) (Multi) COMPARISON: None. ACCESSION NUMBER(S): [id number] ORDERING CLINICIAN: LEYLA TINOCO TECHNIQUE: Multiple images of the kidneys were obtained . FINDINGS: RIGHT KIDNEY: The right kidney measures 12.2 cm in length. Increased cortical echogenicity. No hydronephrosis is present; no evidence of nephrolithiasis. Multiple superior simple cyst measuring up to 3.1 cm LEFT KIDNEY: Surgically absent BLADDER: Decompressed with a volume of 156 mL. IMPRESSION: 1. Changes of chronic right-sided medical kidney disease but no hydronephrosis. Prior left nephrectomy. MACRO: None Signed by: Jason Johnson 01/28/2024 5:28 AM Dictation workstation: [id number] ASSESSMENT AND PLAN NOTE Observed: 01/21/2024 8:40 AM Status: COMPLETED Source: [facility] This report has been cancell ed. COMPLETE BLOOD COUNT W AUTO DIFFERENTIAL PANEL Collected: 01/14/2024 9:15 AM Status: F Source: [facility] TYPE CODE TESTS RESULT OUT OF RANGE REFERENCE UNITS LAB 6690-2(LOINC) Leukocytes 8.8 4.4-11.3 x10*3/ uL LAB 38787-6(LOINC ) Erythrocytes.nuc leated/100 leukocytes 0.0 0.0-0.0 /100 WBCs LAB 789-8(LOINC) Erythrocytes 4.19 Low 4.50-5.90 x10* 6/uL LAB 718-7(LOINC) Hemoglobin 11.0 Low 13.5-17.5 g/dL LAB 4544-3(LOINC) Hematocrit 36.2 Low 41.0-52.0 % LAB 787-2(LOINC) Erythrocyte mean corpuscular volume 86 80-100 fL LAB 785-6(LOINC) Erythrocyte mean corpuscular hemoglobin 26.3 26.0-34.0 pg LAB 786-4(LOINC) Erythrocyte mean corpuscular hemoglobin concentration 30.4 Low 32.0-36.0 g/dL LAB 788-0(LOINC) Erythrocyte distribution width 17.2 High 11.5-14.5 % LAB 777-3(LOINC) Platelets 189 150-450 x10*3/uL LAB 770-8(LOINC) Neutrophils/100 leukocytes 60.0 40.0-80.0 % LAB 65612-0(LOINC ) Granulocytes.imm ature/100 leukocytes 0.2 0.0-0.9 % Result Comment: Immature Gra nulocyte Count (IG) includes promyelocytes, myelocytes and metamyelocytes but does not include bands. Percent differential counts (%) should be interpreted in the context of the absolute cell counts (cells/UL). LAB 736-9(LOINC) Lymphocytes/100 leukocytes 33.8 13.0-44.0 % LAB 5905-5(LOINC) Monocytes/100 leukocytes 5.2 2.0-10.0 % LAB 713-8(LOINC) Eosinophils/100 leukocytes 0.5 0.0-6.0 % LAB 706-2(LOINC) Basophils/100 leukocytes 0.3 0.0-2.0 % LAB 751-8(LOINC) Neutrophils 5.26 1.60-5.50 x10*3 /uL Result Comment: Percent diff erential counts (%) should be interpreted in the context of the absolute cell counts (cells/uL). LAB 03426-1(LOINC ) Granulocytes.imm ature 0.02 0.00-0.50 x10*3/uL LAB 731-0(LOINC) Lymphocytes 2.97 0.80-3.00 x10*3 /uL LAB 742-7(LOINC) Monocytes 0.46 0.05-0.80 x10*3/u L LAB 711-2(LOINC) Eosinophils 0.04 0.00-0.40 x10*3 /uL LAB 704-7(LOINC) Basophils 0.03 0.00-0.10 x10*3/u L Performed By: #### 12783-8 # ### SHEREE SANTOS ([id number]) [facility] ([facility]) [facility] [place] [address] TSH WITH REFLEX TO FREE T4 I F ABNORMAL Collected: 01/14/2024 9:15 AM Status: F Source: [facility] Order Comment: TSH testing i s performed using different testing methodology at [facility] than at other [facility]. Direct result comparisons should only be made within the same method. TYPE CODE TESTS RESULT OUT OF RANGE REFERENCE UNITS LAB 3016-3(LOINC) Thyrotropin 4.94 High 0.44-3.98 mIU/ L Performed By: #### THYDS ### # SHEREE SANTOS ([id number]) [facility] ([facility]) [facility] [place] [id number] COMPREHENSIVE METABOLIC 2000 PANEL Collected: 01/14/2024 9:15 AM Status: F Source: [facility] TYPE CODE TESTS RESULT OUT OF RANGE REFERENCE UNITS LAB 2345-7(LOINC) Glucose 130 High 74-99 mg/dL LAB 2951-2(LOINC) Sodium 139 136-145 mmol/L LAB 2823-3(LOINC) Potassium 4.4 3.5-5.3 mmol/L LAB 2075-0(LOINC) Chloride 107 98-107 mmol/L LAB 8-9(LOINC) Carbon dioxide 23 21-32 mmo l/L LAB 03654-1(LOINC ) Anion gap 13 10-20 mmol/L LAB 3094-0(LOINC) Urea nitrogen 52 High 6-23 mg/d L LAB 2160-0(LOINC) Creatinine 3.68 High 0.50-1.30 mg/dL LAB 62146-4(LOINC ) Glomerular filtration rate/1.73 sq M.predicted 16 Low >60 mL/min/ 1.73m*2 Result Comment: Calculations of estimated GFR are performed using the 2020 CKD- EPI Study Refit equation without the race variable for the IDMS-Traceable creatinine methods. https://jasn.asnjournals.org/content//ASN.6780227058 LAB 95514-5(LOINC ) Calcium 8.9 8.6-10.3 mg/dL LAB 21636-2(LOINC ) Albumin 3.8 3.4-5.0 g/dL LAB 6768-6(LOINC) Alkaline phosphatase 79 33-136 U/L LAB 2885-2(LOINC) Protein 6.1 Low 6.4-8.2 g/dL LAB 84155-0(LOINC ) Aspartate aminotransferase 12 9-39 U/L LAB 1975-2(LOINC) Bilirubin 0.6 0.0-1.2 mg/dL LAB 1743-4(LOINC) Alanine aminotransferase 8 Low 10-52 U/L Result Comment: Patients alf ated with Sulfasalazine may generate falsely decreased results for ALT. Performed By: #### 85183-1 # ### BENTLEY DANIELLE ([id number]) [facility] ([facility]) [address] [place] [address] LIPID 1996 PANEL Collected: 01/14/2024 9:15 AM Statu s: F Source: [facility] TYPE CODE TESTS RESULT OUT OF RANGE REFERENCE UNITS LAB 2093-3(LOINC) Cholesterol 127 0-199 mg/dL Result Comment: Age Desirabl e Borderline High High 0-19 Y 0 - 169 170 - 199 >/= 200 20-24 Y 0 - 189 190 - 224 >/= 225 >24 Y 0 - 199 200 - 239 >/= 240 All ranges are based on fasting samples. Specific therapeutic targets will vary based on patient-specific cardiac risk. Pediatric guidelines reference:Pediatrics 2011, 128(S5).Adult guidelines reference: NCEP ATPIII Guidelines,DEANNA 2001, 258:2486-97 Venipuncture immediately after or during the administration of Metamizole may lead to falsely low results. Testing should be performed immediately prior to Metamizole dosing. LAB 2085-9(LOINC) Cholesterol.in HDL 43.0 mg/dL Result Comment: Age Very Low Low Normal High 0-19 Y < 35 < 40 40-45 ---- 20-24 Y ---- < 40 >45 ---- >24 Y ---- < 40 40-60 >60 LAB CHHDL CHOLESTEROL/HDL RATIO 3.0 NA Result Comment: Ref Values Desirable < 3.4 High Risk > 5.0 LAB 37433-9(LOINC) Cholesterol.in LDL 63 <=99 mg/dL Result Comment: Near Borderl ine AGE Desirable Optimal High High Very High 0-19 Y 0 - 109 --- 110-129 >/= 130 ---- 20-24 Y 0 - 119 --- 120-159 >/= 160 ---- >24 Y 0 - 99 100-129 130-159 160-189 >/=190 LAB VLDL VLDL 21 0-40 mg/dL LAB 2571-8(LOINC) Triglyceride 107 0-149 mg/dL Result Comment: Age Desirabl e Borderline High High Very High 0 D-90 D 19 - 174 ---- ---- ---- 91 D- 9 Y 0 - 74 75 - 99 >/= 100 ---- 10-19 Y 0 - 89 90 - 129 >/= 130 ---- 20-24 Y 0 - 114 115 - 149 >/= 150 ---- >24 Y 0 - 149 150 - 199 200- 499 >/= 500 Venipuncture immediately after or during the administration of Metamizole may lead to falsely low results. Testing should be performed immediately prior to Metamizole dosing. LAB NHDL NON HDL CHOLESTEROL 84 0-149 mg/dL Result Comment: Age Desirabl e Borderline High High Very High 0-19 Y 0 - 119 120 - 144 >/= 145 >/= 160 20-24 Y 0 - 149 150 - 189 >/= 190 ---- >24 Y 30 mg/dL above LDL Cholesterol goal Performed By: #### 55857-5 # ### BENTLEY DANIELLE ([id number]) [facility] ([facility]) [address]FREE Collected: 4 9:15 AM Status: F Source: [facility] Order Comment: Thyroxine Kareem e testing is performed using different testing methodology at [facility] than at other [facility]. Direct result comparisons should only be made within the same method. Biotin can cause falsely elevated free T4 results. Patients taking a Biotin dose of up to 10 mg/day should refrain from taking Biotin for 24 hours before sample collection. Patient taking a Biotin dose of >10 mg/day should consult with their physician or the laboratory before the blood draw. TYPE CODE TESTS RESULT OUT OF RANGE REFERENCE UNITS LAB 3024-7(LOINC) Thyroxine.fr ee 1.00 0.61-1.12 ng/dL Performed By: #### 3024-7 ## ## SHEREE SANTOS ([id number]) [facility] ([facility]) [address] [place] [address] HEMOGLOBIN A1C/HEMOGLOBIN.TOTAL Collect ed: 01/14/2024 9:15 AM Status: F Source: [facility] Order Comment: Diagnosis of Diabetes-Adults Non-Diabetic: < or = 5.6% Increased risk for developing diabetes: 5.7-6.4% Diagnostic of diabetes: > or = 6.5% TYPE CODE TESTS RESULT OUT OF RANGE REFERENCE UNITS LAB 4548-4(LOINC ) Hemoglobin A1c/Hemoglob in.total 5.5 See comment % LAB 41221-5(LOIN C) Estimated average glucose 111 Not Established mg/dL Performed By: #### 4548-4 ## ## MUKESH Huerta ([id number]) [facility] ([facility]) [address] [place] [address] COMPLETE BLOOD COUNT W AUTO DIFFERENTIAL PANEL Collected: 12/31/2023 9:16 AM Status: F Source: [facility] TYPE CODE TESTS RESULT OUT OF RANGE REFERENCE UNITS LAB 6690-2(LOINC) Leukocytes 8.2 4.4-11.3 x10*3/ uL LAB 65491-9(LOINC ) Erythrocytes.nuc leated/100 leukocytes 0.0 0.0-0.0 /100 WBCs LAB 789-8(LOINC) Erythrocytes 4.15 Low 4.50-5.90 x10* 6/uL LAB 718-7(LOINC) Hemoglobin 11.1 Low 13.5-17.5 g/dL LAB 4544-3(LOINC) Hematocrit 36.1 Low 41.0-52.0 % LAB 787-2(LOINC) Erythrocyte mean corpuscular volume 87 80-100 fL LAB 785-6(LOINC) Erythrocyte mean corpuscular hemoglobin 26.7 26.0-34.0 pg LAB 786-4(LOINC) Erythrocyte mean corpuscular hemoglobin concentration 30.7 Low 32.0-36.0 g/dL LAB 788-0(LOINC) Erythrocyte distribution width 17.3 High 11.5-14.5 % LAB 777-3(LOINC) Platelets 174 150-450 x10*3/uL LAB 770-8(LOINC) Neutrophils/100 leukocytes 56.6 40.0-80.0 % LAB 33220-9(LOINC ) Granulocytes.imm ature/100 leukocytes 0.1 0.0-0.9 % Result Comment: Immature Gra nulocyte Count (IG) includes promyelocytes, myelocytes and metamyelocytes but does not include bands. Percent differential counts (%) should be interpreted in the context of the absolute cell counts (cells/UL). LAB 736-9(LOINC) Lymphocytes/100 leukocytes 35.3 13.0-44.0 % LAB 5905-5(LOINC) Monocytes/100 leukocytes 7.0 2.0-10.0 % LAB 713-8(LOINC) Eosinophils/100 leukocytes 0.4 0.0-6.0 % LAB 706-2(LOINC) Basophils/100 leukocytes 0.6 0.0-2.0 % LAB 751-8(LOINC) Neutrophils 4.66 1.60-5.50 x10*3 /uL Result Comment: Percent diff erential counts (%) should be interpreted in the context of the absolute cell counts (cells/uL). LAB 39511-8(LOINC ) Granulocytes.imm ature 0.01 0.00-0.50 x10*3/uL LAB 731-0(LOINC) Lymphocytes 2.91 0.80-3.00 x10*3 /uL LAB 742-7(LOINC) Monocytes 0.58 0.05-0.80 x10*3/u L LAB 711-2(LOINC) Eosinophils 0.03 0.00-0.40 x10*3 /uL LAB 704-7(LOINC) Basophils 0.05 0.00-0.10 x10*3/u L Performed By: #### 33274-3 # ### BENTLEY DANIELLE ([id number]) [facility] ([facility]) [address] [place] [address] ALLERGIES DATE TYPE / CODE NAME / CODE REACTION SEVERITY SOURCE Miscellaneous Allergy/[id number](SNOME D CT) NO KNOWN ALLERGIES [facility] Ambulatory SYSTEMIC/[id number](S NOM ED CT) NO KNOWN ALLERGIES [facility] Ambulatory ENCOUNTERS ADMIT/DISCHARGE ACCOUNT NUMBER ADMITTING ENCOUNTER CLASS LOCATION SOURCE 07/21/2024/07/22/19 [id number] Ambulatory Building:[facility] [id number] [facility] 06/30/2024/07/01/19 [id number] Ambulatory Building:[address] Ambulatory 03/01/2024/03/01/20 24 [id number] LEYLA TINOCO Ambulatory Building:[facility] 02/11/2024/02/11/20 24 [id number] MARE TINOCO Ambulatory Building:[facility] 1FCVEPIRoom: [id number] POOLBed: [address] [place] [address] 02/11/2024/02/11/20 24 [id number] Ambulatory Building:[address] 02/11/2024/02/11/20 24 [id number] Ambulatory Building:[facility] 02/04/2024/02/04/20 24 [id number] Ambulatory Building:[address] Ambulatory 02/03/2024/02/03/20 24 [id number] Ambulatory Building:[facility] 01/28/2024/01/28/20 24 [id number] Ambulatory Building:[facility] 01/27/2024/01/27/20 24 [id number] Ambulatory Building:[facility] 01/25/2024/01/25/20 24 [id number] Ambulatory Building:[address] Ambulatory 01/21/2024/01/21/20 [id number] Ambulatory Building:[facility] [id number] [facility] 01/14/2024/01/14/20 [id number] Ambulatory Building:[facility] 12/31/2023/12/31/19 [id number] Ambulatory Building:[facility] [id number] [facility] 12/31/2023/12/31/19 [id number] Ambulatory Building:[facility] PAYERS ENCOUNTER GUARANTOR PAYER SUBSCRIBER SOURCE 07/21/2024 AVNI AGUIRREB: [place] [address]Zsu: () Primary Insurance:MEDICARE Policy Number: [id number] ve Date:2006-02-20 AVNI AGUIRREB: [id number] [place] [address]Oig: () [facility] 07/21/2024 Secondary Insurance:AETNAPol icy Number: [id number] e Date:2007-03-23 AVNI AGUIRREB: [id number] [place] [address]Qfc: () [facility] 06/30/2024 AVNI AGUIRREB: [place] [address]Nay: () Primary Insurance:MEDICARE Policy Number: [id number] ve Date:2006-02-20 AVNI AGUIRREB: [id number] [place] [address]Ugf: () [facility] 06/30/2024 Secondary Insurance:AETNAPol icy Number: [id number] e Date:2007-03-23 AVNI AGUIRREB: [id number] [place] [address]Jcg: () [facility] 03/01/2024 AVNI AGUIRREB: [place] [address]Xwo: () Primary Insurance:MEDICARE Policy Number: [id number] ve Date:[id number] J15 PART A CLAIMSPO [address] [address]SQ: AVNI AGUIRREB: [id number] [place] [address]Qrx: () [facility] 03/01/2024 Secondary Insurance:AETNAPol icy Number: [id number] e Date:[id number] [address]EU: AVNI AGUIRREB: [id number] [place] [address]Rfn: () [facility] 02/11/2024 AVNI AGUIRREB: [place] [address]Jzg: () Primary Insurance:MEDICARE Policy Number: [id number] ve Date:2006-02-20 AVNI AGUIRREB: [id number] [place] [address]Mlj: () [facility] 02/11/2024 Secondary Insurance:AETNAPol icy Number: [id number] e Date:2007-03-23 AVNI AGUIRREB: [id number] [place] [address]Tgv: () [facility] 02/11/2024 AVNI AGUIRREB: [place] [address]Dhg: () Primary Insurance:MEDICARE Policy Number: [id number] Date:2006-02-20 AVNI AGUIRREB: [id number] [place] [address]Ict: () [facility] 02/11/2024 Secondary Insurance:AETNAPol icy Number: [id number] e Date:2007-03-23 AVNI AGUIRREB: [id number] [place] [address]Ckq: () [facility] 02/11/2024 AVNI Dee EJB: [place] [address]Wqg: () Primary Insurance:MEDICARE Policy Number: [id number] Date:2006-02-20 AVNI FONSECAB: [id number] [place] [address]Kke: () [facility] 02/11/2024 Secondary Insurance:AETNAPol icy Number: [id number] e Date:2007-03-23 AVNI AGUIRREB: [id number] [place] [address]Hyj: () [facility] 02/04/2024 AVNI Dee EJB: [place] [address]Jyc: () Primary Insurance:MEDICARE Policy Number: [id number] Date:2006-02-20 AVNI FONSECAB: [id number] [place] [address]Ctv: () [facility] 02/04/2024 Secondary Insurance:AETNAPol icy Number: [id number] e Date:2007-03-23 AVNI AGUIRREB: [id number] [place] [address]Ekk: () [facility] 02/03/2024 AVNI [place]SECADOB: [place] [address]Hlp: () Primary Insurance:MEDICARE Policy Number: [id number] Date:2006-02-20 AVNI AGUIRREB: [id number] [place] [address]Nbo: () [facility] 02/03/2024 Secondary Insurance:AETNAPol icy Number: [id number] e Date:2007-03-23 AVNI AGUIRREB: [id number] SONY [place] [address]Tsx: () [facility] 01/28/2024 AVNI AGUIRREB: [place] [address]Drq: () Primary Insurance:MEDICARE Policy Number: [id number] ve Date:2006-02-20 AVNI AGUIRREB: [id number] [place] [address]Mcn: () [facility] 01/28/2024 Secondary Insurance:AETNAPol icy Number: [id number] e Date:2007-03-23 AVNI AGUIRREB: [id number] [place] [address]Pvq: () [facility] 01/27/2024 AVNI FONSECAB: [place] [address]Xke: () Primary Insurance:MEDICARE Policy Number: [id number] ve Date:2006-02-20 AVNI Dee EJB: [id number] [place] [address]Jgi: () [facility] 01/27/2024 Secondary Insurance:AETNAPol icy Number: [id number] e Date:2007-03-23 AVNI Dee TIMOTHYB: [id number] [place] [address]Aee: () [facility] 01/25/2024 AVNI Dee TIMOTHYB: [place] [address]Hcp: () Primary Insurance:MEDICARE Policy Number: [id number] ve Date:2006-02-20 AVNI Dee TIMOTHYB: [id number] [place] [address]Fur: () [facility] 01/25/2024 Secondary Insurance:AETNAPol icy Number: [id number] e Date:2007-03-23 AVNI Dee TIMOTHYB: [id number] [place] [address]Ndq: () [facility] 01/21/2024 AVNI Dee TIMOTHYB: [place] [address]Kbo: () Primary Insurance:MEDICARE Policy Number: [id number] ve Date:2006-02-20 AVNI Dee TIMOTHYB: [id number] [place] [address]Fix: () [facility] 01/21/2024 Secondary Insurance:AETNAPol icy Number: [id number] e Date:2007-03-23 AVNI AGUIRREB: [id number] [place] [address]Gjk: () [facility] 01/14/2024 AVNI FONSECADOB: [place] [address]Lza: () Primary Insurance:MEDICARE Policy Number: [id number] ve Date:2006-02-20 AVNI AGUIRREB: [id number] [place] [address]Euh: () [facility] 01/14/2024 Secondary Insurance:AETNAPol icy Number: [id number] e Date:2007-03-23 AVNI AGUIRREB: [id number] [place] [address]Rda: () [facility] 12/31/2023 AVNI AGUIRREB: [place] [address]Mjn: () Primary Insurance:MEDICARE Policy Number: [id number] ve Date:2006-02-20 AVNI AGUIRREB: [id number] [place] [address]Ecg: () [facility] 12/31/2023 Secondary Insurance:AETNAPol icy Number: [id number] e Date:2007-03-23 AVNI FONSECADOB: [id number] [place] [address]Sui: () [facility] 12/31/2023 AVNI AGUIRREB: [place] [address]Yqy: () Primary Insurance:MEDICARE Policy Number: [id number] ve Date:2006-02-20 AVNI CARLOS: [id number] [facility] [place] [address]Jai: () [facility] 12/31/2023 Secondary Insurance:AETNAPol icy Number: [id number] e Date:2007-03-23 AVNI CARLOS: [id number] [facility] [place] [place] [address]Atu: () [facility]
--- NOTE | 2024-12-20 10:56 | AVDS_ITS ---
Reason For Study Reason For Study: AVF Evaluation Right Velocities Inflow,187.3/94.8 cm/sec. Inflow, 805.8 ml/min. Prox anast, 440.3/296.5 cm/sec. Prox anast, 1344 ml/min. Prox graft, 418.5/224.4 cm/sec. Prox graft, 1411 ml/min. Mid graft, 238.8/117.3 cm/sec. Mid graft, 1442 ml/min. PTFE JUMP GRAFT Prox Anastomosis 250.4/136.8 cm/sec. Prox Anastomosis 841.8 ml/min Dist Anastomosis 299.9/147.2 cm/sec. Dist Anastomosis 1041 ml/min END PTFE BACK TO TYONEK Dist Graft, 202.4/102.1 cm/sec. Dist Graft, 1544 ml/min. Outflow, 137.4/73.7 cm/sec. Outflow, 1620 ml/min. VL/AV Fistula/Dialysis Graft Scan Interpretation Summary Patent right arm fistula/graft with no evidence of stenosis and adequate flow v olume. Marginal caliber. Ordering Physician: Jeanne Aguayo Referring Physician: Diomedes Byers Performed By: Jules Winter RVT
== END | disposition home or self-care (01) ==
LOC: CVS 10:53
PROVIDERS: PCP Family Medicine; Referring Provider Physician Assistant; Visit Provider Physician Assistant
DX: N18.6 End stage renal disease (principal); Z99.2 Dependence on renal dialysis
CPT/HCPCS: 93990